=== PATIENT | male | born 1955 | race Caucasian/White ===

== ENCOUNTER 2021-08-17 16:55 | Observation (INO) | payer MEDICARE, OTHER ==
[2021-08-17] MEDS ORDERED: Sodium Chloride 0.9% 1000 ML 1,000 ML IV SCH (17:30)
[2021-08-17 18:02] LABS: Absolute Neutrophil Ct (ANC) 7.42 (1.4-6.9); Basophil (Absolute #) 0.03 (0-0.4); Eosinophil % 2.1 % (0.00-5.0); Eosinophil (Absolute #) 0.22 (0-0.5); Hematocrit 46.9 % (42-50); Lymphocyte (Absolute #) 2.18 (1.0-4.6); Lymphocytes % 20.3 % (24.0-44.0); Mean Cell Volume 89.5 fl (78-100); Mean Corpuscular Hemoglobin 30.5 pg (26-32); Mean Corpuscular Hgb Concent. 34.1 g/dl (32-36); Mean Platelet Volume 11.2 fl (7.5-11.0); Monocyte (Absolute #) 0.87 (0.0-1.3); Monocytes % 8.1 % (0.0-12.0); Neutrophil % 69.2 % (36.0-66.0); Platelet Count 284 K/mm3 (150-450); Red Blood Count 5.24 M/mm3 (4.1-5.6); Red Cell Distribution Width 13.7 % (11.5-14.0); White Blood Count 10.7 K/mm3 (4.0-10.5)
[2021-08-17 18:12] LABS: ALBUMIN 4.5 g/dL (3.5-5.0); ALKALINE PHOSPHATASE 66 U/L (38-126); ANION GAP 13.3 MEQ/L (5-15); BLOOD UREA NITROGEN 26 mg/dL (9-20); CHLORIDE 102 mmol/L (98-107); Calcium 9.9 mg/dL (8.4-10.2); Carbon Dioxide 25 mmol/L (22-30); Creatinine 1 1.22 mg/dL (0.66-1.25); EST GLOMERULAR FILTRATION RATE > 60.0 ML/MIN; Glucose 126 mg/dL (74-106); Potassium 4.3 mmol/L (3.5-5.1); SGOT/AST 27 U/L (17-59); SGPT/ALT 20 U/L (0-50); SODIUM 137 mmol/L (137-145); Total Protein 7.4 g/dL (6.3-8.2)
[2021-08-17 19:41] LABS: Amphetamine,Urine NEGATIVE (NEGATIVE); Barbiturate,Urine NEGATIVE (NEGATIVE); Benzodiazepine,Urine NEGATIVE (NEGATIVE); Cocaine,Urine NEGATIVE (NEGATIVE); Methadone,Urine NEGATIVE (NEGATIVE); Opiate,Urine NEGATIVE (NEGATIVE); PCP,Urine NEGATIVE (NEGATIVE); THC,Urine NEGATIVE (NEGATIVE)
--- NOTE | 2021-08-17 19:55 | ERPHSYRPT ---
- History of Present Illness Time Seen by Provider: 08/17/21 17:10 Source: patient Exam Limitations: no limitations Patient Subjective Stated Complaint: PT states "It started yesterday, the right side of my tongue is tingling and my right cheek and jaw is numb." Triage Nursing Assessment: PT presented alert and oriented X 3, skin pwd Pt ambulates with an upright steady gait, able to speak in clear full sentences pt in no apparent respiratory distress. Physician History: Patient is a 66-year-old male presents to our ED with a 1 day history of right tongue tingling and right cheek jaw numbness. Symptoms continued into today. No associated motor weakness. No headache. No acute blurred vision. No neck pain. No associated chest pain or shortness of breath. No nausea vomiting or diaphoresis. No recent fevers. No diarrhea. No rash. Symptoms are mild to moderate in intensity. No specific worsening improving factors. Patient denies a history of the same. Patient has a history of diabetes hypertension hypercholesterolemia. Patient states he has been taking all medications as prescribed. 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 Patient states is otherwise healthy. He voices no other complaints or concerns at this time. Timing/Duration: yesterday Severity: moderate Modifying Factors: Improves With: nothing Associated Symptoms: denies symptoms Allergies/Adverse Reactions: lisinopril Adverse Reaction (Severe, Verified 08/17/21 17:15) Cough Home Medications: Atorvastatin Calcium [Lipitor] 20 mg PO DAILY 08/17/21 [History] Hctz/Triamteren 37.5 mg/25 mg* [Maxzide-25MG Tablet] 1 tab PO DAILY 08/17/21 [History] Insulin Glargine,Hum.rec.anlog [Lantus] 100 unit SQ DAILY 08/17/21 [History] Losartan Potassium [Cozaar] 50 mg PO DAILY 08/17/21 [History] Metformin HCl 500 mg [Glucophage 500 MG] 1,000 mg PO BIDWM 08/17/21 [History] Metoprolol Succinate [Toprol Xl] 25 mg PO DAILY 08/17/21 [History] [place]-3 Fatty Acids/Fish Oil [Fish Oil 1,000 mg Capsule] 1 each PO DAILY 08/17/21 [History] Semaglutide [Ozempic] 1 mg SQ DAILY 08/17/21 [History] Hx Tetanus, Diphtheria Vaccination/Date Given: Yes Hx Influenza Vaccination/Date Given: Yes Hx Pneumococcal Vaccination/Date Given: No Immunizations Up to Date: Yes Travel Risk - International Travel Have you traveled outside of the country in past 3 weeks: No - Coronavirus Screening Are you exhibiting any of the following symptoms?: No Close contact with a COVID-19 positive Pt in past 14-21 Days: No - Vaccine Status Have you recieved a Covid-19 vaccination: Yes [employer]: Moderna - Vaccination Dates Date of 2cond Vaccination (if applicable): 10/2020 Comment: booster in may - Review of Systems Constitutional: No Symptoms, No Fever, No Chills Eyes: No Symptoms Ears, Nose, & Throat: No Symptoms Respiratory: No Symptoms, No Cough, No Dyspnea Cardiac: No Symptoms, No Chest Pain, No Edema, No Syncope Abdominal/Gastrointestinal: No Symptoms, No Abdominal Pain, No Nausea, No Vomiting, No Diarrhea Genitourinary Symptoms: No Symptoms, No Dysuria Musculoskeletal: No Symptoms, No Back Pain, No Neck Pain Skin: No Symptoms, No Rash Neurological: No Symptoms, No Dizziness, No Focal Weakness, No Sensory Changes Psychological: No Symptoms Endocrine: No Symptoms Hematologic/Lymphatic: No Symptoms Immunological/Allergic: No Symptoms All Other Systems: Reviewed and Negative - Past Medical History Pertinent Past Medical History: Yes Cardiac History: Angina, High Cholesterol, Hypertension Endocrine Medical History: Diabetes Type II GI Medical History: GERD - Past Surgical History Past Surgical History: Yes Other Surgical History: appi. hernia X 2 - Social History Smoking Status: Never smoker Exposure to second hand smoke: No Drug Use: none Patient Lives Alone: No - Nursing Vital Signs Nursing Vital Signs: Initial Vital Signs Temperature 97.6 F 08/17/21 17:05 Pulse Rate 92 H 08/17/21 17:05 Respiratory Rate 20 08/17/21 17:05 Blood Pressure 158/97 08/17/21 17:05 O2 Sat by Pulse Oximetry 98 08/17/21 17:05 Pain Scale Pain Intensity 0 - Physical Exam General Appearance: no apparent distress, alert Eye Exam: PERRL/EOMI, eyes nml inspection Ears, Nose, Throat Exam: normal ENT inspection, TMs normal, pharynx normal, moist mucous membranes Neck Exam: normal inspection, non-tender, supple, full range of motion Respiratory Exam: normal breath sounds, lungs clear, airway intact, No respiratory distress Cardiovascular Exam: regular rate/rhythm, normal heart sounds, normal peripheral pulses Gastrointestinal/Abdomen Exam: soft, normal bowel sounds, No tenderness, No mass Back Exam: normal inspection, normal range of motion, No CVA tenderness, No vertebral tenderness Extremity Exam: normal inspection, normal range of motion, pelvis stable Neurologic Exam: alert, oriented x 3, cooperative, normal mood/affect, nml cerebellar function, nml station & gait, sensation nml, other (Patient's complaints are subjective. Objective neuro exam within normal limits.), No motor deficits Skin Exam: normal color, warm, dry, No rash Lymphatic Exam: No adenopathy SpO2 Interpretation: normal SpO2: 94 O2 Delivery: Room Air - Course Nursing assessment & vital signs reviewed: Yes EKG Interpreted by Me: RATE (75), Sinus Rhythm, NORMAL AXIS, NORMAL INTERVALS (Incomplete right bundle branch block and left anterior fascicular block. Consider anterior infarct.) - CT Exams Soft Tissue Neck CT Interpretation: Tele-radiologist Report (CT angio neck. No clamps. Very minimal atherosclerotic plaquing bilateral carotid bulb. Remaining CTA neck normal.) Head CT Interpretation: Tele-radiologist Report (CTA head shows no comps. Minimal scattered atherosclerotic plaquing bilateral parasellar and ICAs. Remaining CTA head normal.) Other CT Interpretation: Tele-radiologist Report (CT head without contrast is normal.) Ordered Tests: Active Orders 24 hr Category Date Time Status Bedrest with BRP/BSC ROUTINE Activity 08/17/21 23:49 Active Monotyper STAT Care 08/17/21 17:30 Active Code Status Order ROUTINE Care 08/17/21 23:49 Active EKG-ER Only STAT Care 08/17/21 17:29 Active IV Care Q6H Care 08/17/21 23:49 Active IV Insertion STAT Care 08/17/21 17:29 Active Implement Chest Pain Pathway ROUTINE Care 08/17/21 23:[address] in Observation ROUTINE Care 08/17/21 23:49 Active Pulse Oximetry (ED) STAT Care 08/17/21 17:29 Active Darwin Dickerson, Apply ROUTINE Care 08/17/21 23:49 Active Telemetry q6h Care 08/17/21 23:49 Active Weight,Daily 0600 Care 08/17/21 23:49 Active Consistent Carbohydrate Diet 1800 Calorie Diet 08/18/21 Breakfast Active CAROTID BILATERAL [US] Stat Exams 08/17/[address] ANGIOGRAPHY NECK [CT] Stat Exams 08/17/21 17:31 Taken CTA HEAD W AND/OR WO CONTRAST [CT] Stat Exams 08/17/21 17:32 Taken HEAD WITHOUT CONTRAST [CT] Stat Exams 08/17/21 17:28 Taken CBC W DIFF Stat Lab 08/17/21 17:50 Completed CMP Stat Lab 08/17/21 17:50 Completed LIPID PROFILE AM.LAB Lab 08/18/21 04:00 Ordered TROPONIN Q3H Lab 08/17/21 17:50 Completed TROPONIN Q3H Lab 08/17/21 20:25 Completed TROPONIN Q3H Lab 08/17/21 23:30 Received TROPONIN Q3H Lab 08/18/21 02:30 Ordered TROPONIN Q3H Lab 08/18/21 05:30 Ordered Urine Triage Profile Stat Lab 08/17/21 18:44 Completed EKG Q8HX2,QAMX3,PRN RT 08/17/21 23:49 Active Pulse Oximetry Q4H RT 08/17/21 23:49 Active Medication Summary Generic Name Dose Route Start Last Admin Trade Name Freq PRN Reason Stop Dose Admin Acetaminophen 650 mg 08/17/21 23:49 Acetaminophen 325 Mg Tablet PO 09/16/21 23:48 Q4H PRN PRN PAIN AND/OR FEVER Al Hydrox/Mg Hydrox/Simethicone 30 ml 08/17/21 23:49 Mag Hydrox/Al Hydrox/Simeth 30 Ml Udcup PO 09/16/21 23:48 Q4H PRN PRN INDIGESTION Sodium Chloride 1,000 mls @ 50 mls/hr 08/17/21 17:30 08/17/21 17:53 Sodium Chloride 0.9% 1000 Ml IV 09/16/21 17:29 50 mls/hr .Q20H GINNA Administration Magnesium Hydroxide 30 - 60 ml 08/17/21 23:49 Magnesium Hydroxide 30 Ml Udcup PO 09/16/21 23:48 QDP PRN CONSTIPATION Ondansetron HCl 4 mg 08/17/21 23:49 Ondansetron Hcl 4 Mg/2 Ml Vial IV 09/16/21 23:48 Q4H PRN PRN NAUSEA/VOMITING Senna/Docusate Sodium 2 udtab 08/17/21 23:49 Senna/Docusate Sodium 1 Udtab Tablet PO 09/16/21 23:48 BID PRN PRN CONSTIPATION Discontinued Medications Generic Name Dose Route Start Last Admin Trade Name Rocky PRN Reason Stop Dose Admin Aspirin 324 mg 08/17/21 21:15 08/17/21 21:19 Aspirin 81 Mg Tab.Chew PO 08/17/21 21:16 324 mg STAT ONE Administration Aspirin Confirm 08/17/21 21:18 Aspirin 81 Mg Tab.Chew Administered 08/17/21 21:19 Dose 324 mg .ROUTE .STK-MED ONE Lab/Rad Data: Laboratory Result Diagrams 08/17/21 17:50 08/17/21 17:50 Laboratory Results 08/17/21 08/17/21 08/17/21 Range/Units 22:55 20:25 18:44 WBC (4.0-10.5) K/mm3 RBC (4.1-5.6) M/mm3 Hgb (12.5-18.0) gm/dl Hct (42-50) % MCV (78-100) fl MCH (26-32) pg MCHC (32-36) g/dl RDW (11.5-14.0) % Plt Count (150-450) K/mm3 MPV (7.5-11.0) fl Gran % (36.0-66.0) % Eos # (Auto) (0-0.5) Absolute Lymphs (auto) (1.0-4.6) Absolute Monos (auto) (0.0-1.3) Lymphocytes % (24.0-44.0) % Monocytes % (0.0-12.0) % Eosinophils % (0.00-5.0) % Basophils % (0.0-0.4) % Absolute Granulocytes (1.4-6.9) Basophils # (0-0.4) Sodium (137-145) mmol/L Potassium (3.5-5.1) mmol/L Chloride (98-107) mmol/L Carbon Dioxide (22-30) mmol/L Anion Gap (5-15) MEQ/L BUN (9-20) mg/dL Creatinine (0.66-1.25) mg/dL Estimated GFR ML/MIN Glucose (74-106) mg/dL Calcium (8.4-10.2) mg/dL Total Bilirubin (0.2-1.3) mg/dL AST (17-59) U/L ALT (0-50) U/L Alkaline Phosphatase (38-126) U/L Troponin I < 0.012 (0.000-0.034) ng/mL Serum Total Protein (6.3-8.2) g/dL Albumin (3.5-5.0) g/dL Urine Opiates Level NEGATIVE (NEGATIVE) Ur Methadone NEGATIVE (NEGATIVE) Urine Barbiturates NEGATIVE (NEGATIVE) Ur Phencyclidine (PCP) NEGATIVE (NEGATIVE) Urine Amphetamine NEGATIVE (NEGATIVE) U Benzodiazepine Level NEGATIVE (NEGATIVE) Urine Cocaine NEGATIVE (NEGATIVE) Urine Marijuana (THC) NEGATIVE (NEGATIVE) Influenza Type A Ag NEGATIVE (NEGATIVE) Influenza Type B Ag NEGATIVE (NEGATIVE) RSV (PCR) NEGATIVE (Negative) SARS-CoV-2 (PCR) NEGATIVE (NEGATIVE) 08/17/21 08/17/21 08/17/21 Range/Units 17:50 17:50 17:50 WBC 10.7 H (4.0-10.5) K/mm3 RBC 5.24 (4.1-5.6) M/mm3 Hgb 16.0 (12.5-18.0) gm/dl Hct 46.9 (42-50) % MCV 89.5 (78-100) fl MCH 30.5 (26-32) pg MCHC 34.1 (32-36) g/dl RDW 13.7 (11.5-14.0) % Plt Count 284 (150-450) K/mm3 MPV 11.2 H (7.5-11.0) fl Gran % 69.2 H (36.0-66.0) % Eos # (Auto) 0.22 (0-0.5) Absolute Lymphs (auto) 2.18 (1.0-4.6) Absolute Monos (auto) 0.87 (0.0-1.3) Lymphocytes % 20.3 L (24.0-44.0) % Monocytes % 8.1 (0.0-12.0) % Eosinophils % 2.1 (0.00-5.0) % Basophils % 0.3 (0.0-0.4) % Absolute Granulocytes 7.42 H (1.4-6.9) Basophils # 0.03 (0-0.4) Sodium 137 (137-145) mmol/L Potassium 4.3 (3.5-5.1) mmol/L Chloride 102 (98-107) mmol/L Carbon Dioxide 25 (22-30) mmol/L Anion Gap 13.3 (5-15) MEQ/L BUN 26 H (9-20) mg/dL Creatinine 1.22 (0.66-1.25) mg/dL Estimated GFR > 60.0 ML/MIN Glucose 126 H (74-106) mg/dL Calcium 9.9 (8.4-10.2) mg/dL Total Bilirubin 0.70 (0.2-1.3) mg/dL AST 27 (17-59) U/L ALT 20 (0-50) U/L Alkaline Phosphatase 66 (38-126) U/L Troponin I < 0.012 (0.000-0.034) ng/mL Serum Total Protein 7.4 (6.3-8.2) g/dL Albumin 4.5 (3.5-5.0) g/dL Urine Opiates Level (NEGATIVE) Ur Methadone (NEGATIVE) Urine Barbiturates (NEGATIVE) Ur Phencyclidine (PCP) (NEGATIVE) Urine Amphetamine (NEGATIVE) U Benzodiazepine Level (NEGATIVE) Urine Cocaine (NEGATIVE) Urine Marijuana (THC) (NEGATIVE) Influenza Type A Ag (NEGATIVE) Influenza Type B Ag (NEGATIVE) RSV (PCR) (Negative) SARS-CoV-2 (PCR) (NEGATIVE) - Progress Progress: improved Progress Note: 08/17/21 21:16 Case discussed with teleneurologist. He advises admission. He advises aspirin which was administered now. IV fluids will be administered as well. Patient to be admitted for MRI head with diffusion weighted images and ADC. TTE. Further management per inpatient neurology. Plan of care discussed with patient. He agrees admissions on [facility] for further evaluation and treatment. Covid test pending. 08/17/21 23:55 Patient is Covid negative. Case discussed with Dr. Mathis who accepts admission to observation. Plan of care discussed with patient. He agrees to [facility] for further evaluation and treatment. Strongly requested a.m. hemoglobin A1c as well as ultrasound and carotid Dopplers. Will see patient in: hospital (observation) Counseled pt/family regarding: lab results, diagnosis, rad results - Departure Departure Disposition: Observation Clinical Impression: Dysesthesia of face Condition: Stable Critical Care Time: No Referrals: HOSPITAL,'S [Primary Care Provider] - Follow up/PCP as directed
[2021-08-17] MEDS ORDERED: BABY ASPIRIN 81 MG CHEW PO ONE (21:15)
[2021-08-17] MEDS ORDERED: BABY ASPIRIN 81 MG CHEW ONE (21:18)
[2021-08-17 23:40] LABS: INFLUENZA A NEGATIVE (NEGATIVE); INFLUENZA B NEGATIVE (NEGATIVE); RESPIRATORY SYNCTIAL VIRUS NEGATIVE (Negative); SARS-CoV-2 Xpert Express NEGATIVE (NEGATIVE)
[2021-08-17] MEDS ORDERED: MAALOX ES 30 ML UNIT DOSE PO PRN (23:49)
[2021-08-17] MEDS ORDERED: Senokot-S Tablet PO PRN (23:49)
[2021-08-17] MEDS ORDERED: TYLENOL 325 MG PO PRN (23:49)
[2021-08-17] MEDS ORDERED: Zofran 4 MG/2 ML VIAL IV PRN (23:49)
[2021-08-17] MEDS ORDERED: MILK OF MAGNESIA 30 ML PO PRN (23:49)
[2021-08-18 03:08] LABS: Risk Ratio 3.7
--- NOTE | 2021-08-18 09:08 | XRAY ---
Indication: Right facial numbness. Stroke. Multiple contiguous axial images obtained through the head without contrast. Comparison: None Age-appropriate global atrophy. No acute intracranial hemorrhage, abnormal extra-axial fluid collection, or mass effect. Fourth ventricle is midline without hydrocephalus. Reeves-white matter differentiation preserved. Bony calvarium intact. Floor of right maxillary sinus demonstrates mild mucosal thickening. Both maxillary sinuses demonstrates sub 5 mm polyps/retention cysts. Remaining visualized paranasal sinuses and mastoid air cells are clear. Impression: Paranasal sinus disease. Remaining CT head without contrast exam is negative.
--- NOTE | 2021-08-18 09:18 | XRAY ---
Indication: Left facial numbness. Two-dimensional contrast enhanced CTA neck performed using 100 cc Isovue 370 contrast. Two-dimensional sagittal and coronal reformatted images obtained. Additional 3-dimensional reformatted images obtained using a separate workstation. Comparison: None Visualized aortic arch is normal in course and caliber with patent branch right brachiocephalic, left common carotid, and left subclavian arteries. Right carotid circulation demonstrates widely patent common carotid, carotid bulb and external carotid artery. Origin internal carotid artery demonstrates minimal punctate arteriosclerotic calcification. Left carotid circulation demonstrates widely patent common carotid artery. Carotid bulb demonstrates minimal eccentric soft plaquing producing 20-30% stenosis. Minimal eccentric calcified plaquing at the level of bulb. Remaining internal and external carotid arteries are normal in CTA appearance. Vertebral arteries are bilaterally symmetric without critical stenosis, obstruction, or AV malformation. Visualized soft tissues demonstrates scattered centimeter/subcentimeter cervical and submandibular lymph nodes bilaterally. Parotid and submandibular glands are bilaterally symmetric. Supra and infraglottic airway widely patent. Cervical spine intact with minimal C5-C6 degenerative changes. Lung apices are clear. Impression: 1. Minimal left carotid and very minimal right carotid arteriosclerotic disease as detailed. 2. Remaining CTA neck with contrast exam is negative for critical stenosis/obstruction.
--- NOTE | 2021-08-18 09:22 | XRAY ---
Indication: Left facial numbness. Two-dimensional contrast enhanced CTA head performed using 100 cc Isovue 370 contrast. Two-dimensional sagittal and coronal reformatted images obtained. Additional 3-dimensional reformatted images obtained using a separate workstation. Comparison: None Distal internal carotid arteries are bilaterally symmetric with minimal scattered arteriosclerotic calcifications involving parasellar segments. No critical stenosis, obstruction, or AV malformation. Normal carotid terminus with normal branching A1 and M1 segments bilaterally. More distal anterior cerebral, middle cerebral, anterior communicating, and posterior communicating arteries are normal in CTA appearance. Posterior circulation demonstrates normal CTA appearance to the basilar artery, left/right posterior cerebral, left/right superior cerebellar, and left/right anterior inferior cerebellar arteries. Venous drainage/sinuses are unremarkable. Remaining whole brain is negative for abnormal enhancing intra-or extra-axial mass. Impression: Minimal scattered arteriosclerotic calcifications both distal internal carotid arteries without critical stenosis/obstruction. Remaining CTA head with contrast exam is negative.
--- NOTE | 2021-08-18 10:31 | XRAY ---
Indication: Left facial numbness. Stroke. Sagittal, coronal, and axial MRI brain performed using pre and post T1, T2, FLAIR, diffusion, and ADC sequences. 20 cc Dotarem contrast used. Comparison: None Age-appropriate global atrophy. Punctate T2 signal intensities in the periventricular white matter bilaterally favoring degenerative micro-ischemia. No acute intracranial hemorrhage, abnormal extra-axial fluid collection, or mass effect. Diffusion images are negative for restricted signal. Following gadolinium, there is no abnormal enhancing intra or extra-axial mass. Fourth ventricle is midline without hydrocephalus. 7/8 cranial nerve complex bilaterally symmetric. Normal flow void signal within the major intracerebral circulation. Normal appearing craniocervical junction and sella turcica. Paranasal sinuses are clear. Impression: 1. Global atrophy and degenerative micro-ischemia within normal limits for patient's age. 2. No acute intracranial abnormalities or evidence for evolving large vessel territory stroke. 3. Remaining MRI brain with contrast exam is negative.
[2021-08-18] MEDS ORDERED: Sodium Chloride 0.9% 500 ML 500 ML IV ONE (11:24)
--- NOTE | 2021-08-18 11:31 | XRAY ---
Indication: Stenosis. Two-dimensional sonogram and color Doppler imaging of the carotid arteries the neck performed. Comparison: None Examination of the right carotid circulation demonstrates minimal eccentric calcified plaquing proximal internal carotid artery. Remaining common carotid, carotid bulb, internal carotid, and additional carotid arteries are widely patent. PSV of the CCA is 121 cm. PSV of the ICA is 56 m/s. ICA/CCA ratio is 0.5. Normal antegrade vertebral artery flow. Examination of the left carotid circulation demonstrates minimal heterogeneous plaquing at the level of the bulb. Widely patent common carotid, internal carotid, and external carotid arteries. PSV of the CCA is 108 cm/s. PSV of the ICA is 88 cm/s. ICA/CCA ratio is 0.8. Normal antegrade vertebral artery flow. Impression: Minimal arteriosclerotic plaquing right internal carotid and left carotid bulb as detailed. Velocity measurements and ratios are negative for hemodynamically significant flow-limiting stenosis.
[2021-08-18] MEDS ORDERED: MEDICATION INTERVENTION MC SCH (11:45)
[2021-08-18] MEDS ORDERED: Toprol-Xl 25MG Tablets PO SCH (12:00)
[2021-08-18] MEDS ORDERED: FISH OIL 1,000 MG CAPSULE PO SCH (12:00)
[2021-08-18] MEDS ORDERED: Glucophage 500 MG PO SCH (12:00)
[2021-08-18] MEDS ORDERED: Lantus Insulin SQ SCH (12:00)
[2021-08-18] MEDS ORDERED: Cozaar 50 MG PO SCH (12:00)
[2021-08-18] MEDS ORDERED: Maxzide-25MG Tablet PO SCH (12:00)
[2021-08-18] MEDS ORDERED: ZOCOR 20MG PO SCH (12:00)
[2021-08-18 12:11] VITALS: BP 142/85; PULSE 72; O2SAT 96
--- NOTE | 2021-08-18 12:39 | PCM.DCORD ---
- Discharge Disposition: Home, Self-Care Condition: Stable Prescriptions: Continue Hctz/Triamteren 37.5 mg/25 mg* [Maxzide-25MG Tablet] 1 tab PO DAILY Metformin HCl 500 mg [Glucophage 500 MG] 1,000 mg PO BIDWM Semaglutide [Ozempic] 1 mg SQ DAILY [place]-3 Fatty Acids/Fish Oil [Fish Oil 1,000 mg Capsule] 1 each PO DAILY Metoprolol Succinate [Toprol Xl] 25 mg PO DAILY Losartan Potassium [Cozaar] 50 mg PO DAILY Insulin Glargine,Hum.rec.anlog [Lantus] 100 unit SQ DAILY Atorvastatin Calcium [Lipitor] 20 mg PO DAILY Instructions: Stroke Forms: CVA Discharge Instructions
--- NOTE | 2021-08-18 12:48 | PCM.SSS ---
History of Present Illness - Chief Complaint Chief Complaint: r/o stroke History of Present Illness: is a 66 year old male patient followed at the NH in [place], [place]. PMHx includes HTN,IDDM2,HLD,chronic back and neck pain. Patient c/o sudden onset of numbness and tingling in right chin,lips and tongue. States he called the NH and was instructed to go to the nearest hospital ER for evaluation. He denied motor defecit or headache or difficulty with speech or mentaton or gait. He denied fever or respiratory symptoms or chest pain. - Review of Systems Constitutional: No Symptoms Eyes: No Symptoms Ears, Nose, & Throat: No Symptoms, Other Respiratory: No Symptoms Cardiac: No Symptoms Abdominal/Gastrointestinal: No Symptoms Genitourinary Symptoms: No Symptoms Musculoskeletal: Back Pain (chronic LBP), Neck Pain (chronic neck pain,muscle tightness-no recent injury.) Skin: No Symptoms Neurological: Other (see HPI) Psychological: No Symptoms Endocrine: No Symptoms Medications & Allergies Home Medications: Home Medication List Atorvastatin Calcium [Lipitor] 20 mg PO DAILY 08/17/21 [History Confirmed 08/17/21] Hctz/Triamteren 37.5 mg/25 mg* [Maxzide-25MG Tablet] 1 tab PO DAILY 08/17/21 [History Confirmed 08/17/21] Insulin Glargine,Hum.rec.anlog [Lantus] 100 unit SQ DAILY 08/17/21 [History Confirmed 08/17/21] Losartan Potassium [Cozaar] 50 mg PO DAILY 08/17/21 [History Confirmed 08/17/21] Metformin HCl 500 mg [Glucophage 500 MG] 1,000 mg PO BIDWM 08/17/21 [History Confirmed 08/17/21] Metoprolol Succinate [Toprol Xl] 25 mg PO DAILY 08/17/21 [History Confirmed 08/17/21] [place]-3 Fatty Acids/Fish Oil [Fish Oil 1,000 mg Capsule] 1 each PO DAILY 08/17/21 [History Confirmed 08/17/21] Semaglutide [Ozempic] 1 mg SQ DAILY 08/17/21 [History Confirmed 08/17/21] Allergies/Adverse Reactions: Allergies Allergy/AdvReac Type Severity Reaction Status Date / Time lisinopril AdvReac Severe Cough Verified 08/17/21 17:15 - Past Medical History Past Medical History: Yes Neurological History: No Pertinent History ENT History: No Pertinent History Cardiac History: High Cholesterol, Hypertension Respiratory History: No Pertinent History Endocrine Medical History: Diabetes Type II Musculoskelatal History: No Pertinent History GI Medical History: GERD History: No Pertinent History Pyscho-Social History: No Pertinent History Male Reproductive Disorders: No Pertinent History - Past Surgical History Past Surgical History: Yes Neuro Surgical History: No Pertinent History Cardiac History: No Pertinent History Respiratory Surgery: No Pertinent History GI Surgical History: Appendectomy Genitourinary Surgical Hx: No Pertinent History Musculskeletal Surgical Hx: No Pertinent History Male Surgical History: No Pertinent History Other Surgical History: appi. hernia X 2. rt rotator cuff - Social History Smoking Status: Never smoker Exposure to second hand smoke: No Alcohol: None Drug Use: none - Physical Exam Vital Signs: Vital Signs - 24 hr Temp Pulse Resp BP Pulse Ox 08/18/21 12:00 97.7 F 72 20 142/85 96 08/18/21 08:00 97.5 F 79 20 169/95 97 08/18/21 04:00 96.6 F 95 H 16 149/86 94 L 08/18/21 00:51 96.6 F 78 16 155/81 97 08/18/21 00:19 96.6 F 78 16 155/81 97 08/18/21 00:04 81 133/78 95 08/17/21 23:57 94 L 08/17/21 23:16 78 148/86 97 08/17/21 22:42 83 17 145/88 96 08/17/21 21:02 85 160/96 97 08/17/21 21:00 93 H 16 160/96 97 08/17/21 20:05 69 17 125/72 95 08/17/21 19:31 82 133/81 94 L 08/17/21 18:44 78 17 124/77 93 L 08/17/21 17:49 96 08/17/21 17:05 97.6 F 92 H 20 158/97 98 General Appearance: no apparent distress Neurologic Exam: alert, oriented x 3, cooperative, psychological examiner II-XII nml as tested, nor mal mood/affect, nml cerebellar function, nml station & gait Eye Exam: PERRL/EOMI, eyes nml inspection Neck Exam: other (muscle spasm right posterio OA C1,2,3) Respiratory Exam: normal breath sounds Cardiovascular Exam: regular rate/rhythm, other (no carotid bruit) Gastrointestinal/Abdomen Exam: soft (no tender) Back Exam: decreased range of motion (lumbar), muscle spasm Extremity Exam: normal inspection Skin Exam: normal color, warm, dry Results - Labs Lab/Micro Results: Lab Results-Last 24 Hours 08/17/21 08/17/21 08/17/21 Range/Units 17:50 17:50 17:50 WBC 10.7 H (4.0-10.5) K/mm3 RBC 5.24 (4.1-5.6) M/mm3 Hgb 16.0 (12.5-18.0) gm/dl Hct 46.9 (42-50) % MCV 89.5 (78-100) fl MCH 30.5 (26-32) pg MCHC 34.1 (32-36) g/dl RDW 13.7 (11.5-14.0) % Plt Count 284 (150-450) K/mm3 MPV 11.2 H (7.5-11.0) fl Gran % 69.2 H (36.0-66.0) % Eos # (Auto) 0.22 (0-0.5) Absolute Lymphs (auto) 2.18 (1.0-4.6) Absolute Monos (auto) 0.87 (0.0-1.3) Lymphocytes % 20.3 L (24.0-44.0) % Monocytes % 8.1 (0.0-12.0) % Eosinophils % 2.1 (0.00-5.0) % Basophils % 0.3 (0.0-0.4) % Absolute Granulocytes 7.42 H (1.4-6.9) Basophils # 0.03 (0-0.4) Sodium 137 (137-145) mmol/L Potassium 4.3 (3.5-5.1) mmol/L Chloride 102 (98-107) mmol/L Carbon Dioxide 25 (22-30) mmol/L Anion Gap 13.3 (5-15) MEQ/L BUN 26 H (9-20) mg/dL Creatinine 1.22 (0.66-1.25) mg/dL Estimated GFR > 60.0 ML/MIN Glucose 126 H (74-106) mg/dL Hemoglobin A1c (4.5-6.0) % Calcium 9.9 (8.4-10.2) mg/dL Total Bilirubin 0.70 (0.2-1.3) mg/dL AST 27 (17-59) U/L ALT 20 (0-50) U/L Alkaline Phosphatase 66 (38-126) U/L Troponin I < 0.012 (0.000-0.034) ng/mL Serum Total Protein 7.4 (6.3-8.2) g/dL Albumin 4.5 (3.5-5.0) g/dL Triglycerides (30-150) mg/dL Cholesterol (50-200) mg/dL LDL Cholesterol (30-100) mg/dL HDL Cholesterol (40-60) mg/dL Heart Disease Risk Ratio Urine Opiates Level (NEGATIVE) Ur Methadone (NEGATIVE) Urine Barbiturates (NEGATIVE) Ur Phencyclidine (PCP) (NEGATIVE) Urine Amphetamine (NEGATIVE) U Benzodiazepine Level (NEGATIVE) Urine Cocaine (NEGATIVE) Urine Marijuana (THC) (NEGATIVE) Influenza Type A Ag (NEGATIVE) Influenza Type B Ag (NEGATIVE) RSV (PCR) (Negative) SARS-CoV-2 (PCR) (NEGATIVE) 08/17/21 08/17/21 08/17/21 Range/Units 18:44 20:25 22:55 WBC (4.0-10.5) K/mm3 RBC (4.1-5.6) M/mm3 Hgb (12.5-18.0) gm/dl Hct (42-50) % MCV (78-100) fl MCH (26-32) pg MCHC (32-36) g/dl RDW (11.5-14.0) % Plt Count (150-450) K/mm3 MPV (7.5-11.0) fl Gran % (36.0-66.0) % Eos # (Auto) (0-0.5) Absolute Lymphs (auto) (1.0-4.6) Absolute Monos (auto) (0.0-1.3) Lymphocytes % (24.0-44.0) % Monocytes % (0.0-12.0) % Eosinophils % (0.00-5.0) % Basophils % (0.0-0.4) % Absolute Granulocytes (1.4-6.9) Basophils # (0-0.4) Sodium (137-145) mmol/L Potassium (3.5-5.1) mmol/L Chloride (98-107) mmol/L Carbon Dioxide (22-30) mmol/L Anion Gap (5-15) MEQ/L BUN (9-20) mg/dL Creatinine (0.66-1.25) mg/dL Estimated GFR ML/MIN Glucose (74-106) mg/dL Hemoglobin A1c (4.5-6.0) % Calcium (8.4-10.2) mg/dL Total Bilirubin (0.2-1.3) mg/dL AST (17-59) U/L ALT (0-50) U/L Alkaline Phosphatase (38-126) U/L Troponin I < 0.012 (0.000-0.034) ng/mL Serum Total Protein (6.3-8.2) g/dL Albumin (3.5-5.0) g/dL Triglycerides (30-150) mg/dL Cholesterol (50-200) mg/dL LDL Cholesterol (30-100) mg/dL HDL Cholesterol (40-60) mg/dL Heart Disease Risk Ratio Urine Opiates Level NEGATIVE (NEGATIVE) Ur Methadone NEGATIVE (NEGATIVE) Urine Barbiturates NEGATIVE (NEGATIVE) Ur Phencyclidine (PCP) NEGATIVE (NEGATIVE) Urine Amphetamine NEGATIVE (NEGATIVE) U Benzodiazepine Level NEGATIVE (NEGATIVE) Urine Cocaine NEGATIVE (NEGATIVE) Urine Marijuana (THC) NEGATIVE (NEGATIVE) Influenza Type A Ag NEGATIVE (NEGATIVE) Influenza Type B Ag NEGATIVE (NEGATIVE) RSV (PCR) NEGATIVE (Negative) SARS-CoV-2 (PCR) NEGATIVE (NEGATIVE) 08/17/21 08/18/21 08/18/21 Range/Units 23:30 02:30 02:30 WBC (4.0-10.5) K/mm3 RBC (4.1-5.6) M/mm3 Hgb (12.5-18.0) gm/dl Hct (42-50) % MCV (78-100) fl MCH (26-32) pg MCHC (32-36) g/dl RDW (11.5-14.0) % Plt Count (150-450) K/mm3 MPV (7.5-11.0) fl Gran % (36.0-66.0) % Eos # (Auto) (0-0.5) Absolute Lymphs (auto) (1.0-4.6) Absolute Monos (auto) (0.0-1.3) Lymphocytes % (24.0-44.0) % Monocytes % (0.0-12.0) % Eosinophils % (0.00-5.0) % Basophils % (0.0-0.4) % Absolute Granulocytes (1.4-6.9) Basophils # (0-0.4) Sodium (137-145) mmol/L Potassium (3.5-5.1) mmol/L Chloride (98-107) mmol/L Carbon Dioxide (22-30) mmol/L Anion Gap (5-15) MEQ/L BUN (9-20) mg/dL Creatinine (0.66-1.25) mg/dL Estimated GFR ML/MIN Glucose (74-106) mg/dL Hemoglobin A1c (4.5-6.0) % Calcium (8.4-10.2) mg/dL Total Bilirubin (0.2-1.3) mg/dL AST (17-59) U/L ALT (0-50) U/L Alkaline Phosphatase (38-126) U/L Troponin I < 0.012 < 0.012 (0.000-0.034) ng/mL Serum Total Protein (6.3-8.2) g/dL Albumin (3.5-5.0) g/dL Triglycerides 299 H (30-150) mg/dL Cholesterol 144 (50-200) mg/dL LDL Cholesterol 60 (30-100) mg/dL HDL Cholesterol 39 L (40-60) mg/dL Heart Disease Risk Ratio 3.7 Urine Opiates Level (NEGATIVE) Ur Methadone (NEGATIVE) Urine Barbiturates (NEGATIVE) Ur Phencyclidine (PCP) (NEGATIVE) Urine Amphetamine (NEGATIVE) U Benzodiazepine Level (NEGATIVE) Urine Cocaine (NEGATIVE) Urine Marijuana (THC) (NEGATIVE) Influenza Type A Ag (NEGATIVE) Influenza Type B Ag (NEGATIVE) RSV (PCR) (Negative) SARS-CoV-2 (PCR) (NEGATIVE) 08/18/21 08/18/21 Range/Units 02:30 05:45 WBC (4.0-10.5) K/mm3 RBC (4.1-5.6) M/mm3 Hgb (12.5-18.0) gm/dl Hct (42-50) % MCV (78-100) fl MCH (26-32) pg MCHC (32-36) g/dl RDW (11.5-14.0) % Plt Count (150-450) K/mm3 MPV (7.5-11.0) fl Gran % (36.0-66.0) % Eos # (Auto) (0-0.5) Absolute Lymphs (auto) (1.0-4.6) Absolute Monos (auto) (0.0-1.3) Lymphocytes % (24.0-44.0) % Monocytes % (0.0-12.0) % Eosinophils % (0.00-5.0) % Basophils % (0.0-0.4) % Absolute Granulocytes (1.4-6.9) Basophils # (0-0.4) Sodium (137-145) mmol/L Potassium (3.5-5.1) mmol/L Chloride (98-107) mmol/L Carbon Dioxide (22-30) mmol/L Anion Gap (5-15) MEQ/L BUN (9-20) mg/dL Creatinine (0.66-1.25) mg/dL Estimated GFR ML/MIN Glucose (74-106) mg/dL Hemoglobin A1c 6.74 H (4.5-6.0) % Calcium (8.4-10.2) mg/dL Total Bilirubin (0.2-1.3) mg/dL AST (17-59) U/L ALT (0-50) U/L Alkaline Phosphatase (38-126) U/L Troponin I < 0.012 (0.000-0.034) ng/mL Serum Total Protein (6.3-8.2) g/dL Albumin (3.5-5.0) g/dL Triglycerides (30-150) mg/dL Cholesterol (50-200) mg/dL LDL Cholesterol (30-100) mg/dL HDL Cholesterol (40-60) mg/dL Heart Disease Risk Ratio Urine Opiates Level (NEGATIVE) Ur Methadone (NEGATIVE) Urine Barbiturates (NEGATIVE) Ur Phencyclidine (PCP) (NEGATIVE) Urine Amphetamine (NEGATIVE) U Benzodiazepine Level (NEGATIVE) Urine Cocaine (NEGATIVE) Urine Marijuana (THC) (NEGATIVE) Influenza Type A Ag (NEGATIVE) Influenza Type B Ag (NEGATIVE) RSV (PCR) (Negative) SARS-CoV-2 (PCR) (NEGATIVE) - Radiology Impressions Radiology Exams & Impressions: Radiology Procedures Category Date Time Status CAROTID BILATERAL [US] Stat Exams 08/18/21 10:[address] ANGIOGRAPHY NECK [CT] Stat Exams 08/17/21 17:31 Completed CTA HEAD W AND/OR WO CONTRAST [CT] Stat Exams 08/17/21 17:32 Completed HEAD WITHOUT CONTRAST [CT] Stat Exams 08/17/21 17:28 Completed MRI BRAIN W & W/O CONTRAST [MRI] Routine Exams 08/18/21 07:00 Completed - Other Procedures and Tests Respiratory Therapy 08/19/21 05:00 EKG DAILY 08/20/21 05:00 EKG DAILY 08/21/21 05:00 EKG DAILY Assessment/Plan (1) Diabetes type 2, controlled Current Visit: Yes Status: Chronic Qualifiers: Diabetes mellitus terminal operator insulin use: with terminal operator use Assessment & Plan: A1C = 6.7% Code(s): E11.9 - TYPE 2 DIABETES MELLITUS WITHOUT COMPLICATIONS (2) Dysesthesia of face Current Visit: Yes Status: Acute Assessment & Plan: Teleneuro consult - advised overnight obs until MRI with and without contrast done. Code(s): R20.8 - OTHER DISTURBANCES OF SKIN SENSATION (3) Hypertension Current Visit: Yes Status: Chronic Assessment & Plan: monitor,continue present meds Code(s): I10 - ESSENTIAL (PRIMARY) HYPERTENSION Hospital Summary - Hospital Course Hospital Course: Patient presented to ER c/o tingling and numbness right mouth,lip and tongue. MRI of brain with and without contrast per Teleneuro recommended and was rep orted normal for patient's age. No change in condition but no additional neurologic symptoms. Troponins wer not elevated. Glucose and B/P mildly elevated. Patient will be discharged home to see PCP at NH at [facility] . - Vitals & Intake/Output Vital Signs: Vital Signs Temperature 97.7 F 08/18/21 12:00 Pulse Rate 72 08/18/21 12:00 Respiratory Rate 20 08/18/21 12:00 Blood Pressure 142/85 08/18/21 12:00 O2 Sat by Pulse Oximetry 96 08/18/21 12:00 Intake & Output: Intake & Output 08/16/21 08/17/21 08/18/21 08/19/21 11:59 11:59 11:59 11:59 Intake Total 240 Balance 240 Weight 102.5 kg - Lab Result Diagrams: 08/17/21 17:50 08/17/21 17:50 Lab Results-Last 24 Hrs: Lab Results-Last 24 Hours 08/17/21 08/17/21 08/17/21 Range/Units 17:50 17:50 17:50 WBC 10.7 H (4.0-10.5) K/mm3 RBC 5.24 (4.1-5.6) M/mm3 Hgb 16.0 (12.5-18.0) gm/dl Hct 46.9 (42-50) % MCV 89.5 (78-100) fl MCH 30.5 (26-32) pg MCHC 34.1 (32-36) g/dl RDW 13.7 (11.5-14.0) % Plt Count 284 (150-450) K/mm3 MPV 11.2 H (7.5-11.0) fl Gran % 69.2 H (36.0-66.0) % Eos # (Auto) 0.22 (0-0.5) Absolute Lymphs (auto) 2.18 (1.0-4.6) Absolute Monos (auto) 0.87 (0.0-1.3) Lymphocytes % 20.3 L (24.0-44.0) % Monocytes % 8.1 (0.0-12.0) % Eosinophils % 2.1 (0.00-5.0) % Basophils % 0.3 (0.0-0.4) % Absolute Granulocytes 7.42 H (1.4-6.9) Basophils # 0.03 (0-0.4) Sodium 137 (137-145) mmol/L Potassium 4.3 (3.5-5.1) mmol/L Chloride 102 (98-107) mmol/L Carbon Dioxide 25 (22-30) mmol/L Anion Gap 13.3 (5-15) MEQ/L BUN 26 H (9-20) mg/dL Creatinine 1.22 (0.66-1.25) mg/dL Estimated GFR > 60.0 ML/MIN Glucose 126 H (74-106) mg/dL Hemoglobin A1c (4.5-6.0) % Calcium 9.9 (8.4-10.2) mg/dL Total Bilirubin 0.70 (0.2-1.3) mg/dL AST 27 (17-59) U/L ALT 20 (0-50) U/L Alkaline Phosphatase 66 (38-126) U/L Troponin I < 0.012 (0.000-0.034) ng/mL Serum Total Protein 7.4 (6.3-8.2) g/dL Albumin 4.5 (3.5-5.0) g/dL Triglycerides (30-150) mg/dL Cholesterol (50-200) mg/dL LDL Cholesterol (30-100) mg/dL HDL Cholesterol (40-60) mg/dL Heart Disease Risk Ratio Urine Opiates Level (NEGATIVE) Ur Methadone (NEGATIVE) Urine Barbiturates (NEGATIVE) Ur Phencyclidine (PCP) (NEGATIVE) Urine Amphetamine (NEGATIVE) U Benzodiazepine Level (NEGATIVE) Urine Cocaine (NEGATIVE) Urine Marijuana (THC) (NEGATIVE) Influenza Type A Ag (NEGATIVE) Influenza Type B Ag (NEGATIVE) RSV (PCR) (Negative) SARS-CoV-2 (PCR) (NEGATIVE) 08/17/21 08/17/21 08/17/21 Range/Units 18:44 20:25 22:55 WBC (4.0-10.5) K/mm3 RBC (4.1-5.6) M/mm3 Hgb (12.5-18.0) gm/dl Hct (42-50) % MCV (78-100) fl MCH (26-32) pg MCHC (32-36) g/dl RDW (11.5-14.0) % Plt Count (150-450) K/mm3 MPV (7.5-11.0) fl Gran % (36.0-66.0) % Eos # (Auto) (0-0.5) Absolute Lymphs (auto) (1.0-4.6) Absolute Monos (auto) (0.0-1.3) Lymphocytes % (24.0-44.0) % Monocytes % (0.0-12.0) % Eosinophils % (0.00-5.0) % Basophils % (0.0-0.4) % Absolute Granulocytes (1.4-6.9) Basophils # (0-0.4) Sodium (137-145) mmol/L Potassium (3.5-5.1) mmol/L Chloride (98-107) mmol/L Carbon Dioxide (22-30) mmol/L Anion Gap (5-15) MEQ/L BUN (9-20) mg/dL Creatinine (0.66-1.25) mg/dL Estimated GFR ML/MIN Glucose (74-106) mg/dL Hemoglobin A1c (4.5-6.0) % Calcium (8.4-10.2) mg/dL Total Bilirubin (0.2-1.3) mg/dL AST (17-59) U/L ALT (0-50) U/L Alkaline Phosphatase (38-126) U/L Troponin I < 0.012 (0.000-0.034) ng/mL Serum Total Protein (6.3-8.2) g/dL Albumin (3.5-5.0) g/dL Triglycerides (30-150) mg/dL Cholesterol (50-200) mg/dL LDL Cholesterol (30-100) mg/dL HDL Cholesterol (40-60) mg/dL Heart Disease Risk Ratio Urine Opiates Level NEGATIVE (NEGATIVE) Ur Methadone NEGATIVE (NEGATIVE) Urine Barbiturates NEGATIVE (NEGATIVE) Ur Phencyclidine (PCP) NEGATIVE (NEGATIVE) Urine Amphetamine NEGATIVE (NEGATIVE) U Benzodiazepine Level NEGATIVE (NEGATIVE) Urine Cocaine NEGATIVE (NEGATIVE) Urine Marijuana (THC) NEGATIVE (NEGATIVE) Influenza Type A Ag NEGATIVE (NEGATIVE) Influenza Type B Ag NEGATIVE (NEGATIVE) RSV (PCR) NEGATIVE (Negative) SARS-CoV-2 (PCR) NEGATIVE (NEGATIVE) 08/17/21 08/18/21 08/18/21 Range/Units 23:30 02:30 02:30 WBC (4.0-10.5) K/mm3 RBC (4.1-5.6) M/mm3 Hgb (12.5-18.0) gm/dl Hct (42-50) % MCV (78-100) fl MCH (26-32) pg MCHC (32-36) g/dl RDW (11.5-14.0) % Plt Count (150-450) K/mm3 MPV (7.5-11.0) fl Gran % (36.0-66.0) % Eos # (Auto) (0-0.5) Absolute Lymphs (auto) (1.0-4.6) Absolute Monos (auto) (0.0-1.3) Lymphocytes % (24.0-44.0) % Monocytes % (0.0-12.0) % Eosinophils % (0.00-5.0) % Basophils % (0.0-0.4) % Absolute Granulocytes (1.4-6.9) Basophils # (0-0.4) Sodium (137-145) mmol/L Potassium (3.5-5.1) mmol/L Chloride (98-107) mmol/L Carbon Dioxide (22-30) mmol/L Anion Gap (5-15) MEQ/L BUN (9-20) mg/dL Creatinine (0.66-1.25) mg/dL Estimated GFR ML/MIN Glucose (74-106) mg/dL Hemoglobin A1c (4.5-6.0) % Calcium (8.4-10.2) mg/dL Total Bilirubin (0.2-1.3) mg/dL AST (17-59) U/L ALT (0-50) U/L Alkaline Phosphatase (38-126) U/L Troponin I < 0.012 < 0.012 (0.000-0.034) ng/mL Serum Total Protein (6.3-8.2) g/dL Albumin (3.5-5.0) g/dL Triglycerides 299 H (30-150) mg/dL Cholesterol 144 (50-200) mg/dL LDL Cholesterol 60 (30-100) mg/dL HDL Cholesterol 39 L (40-60) mg/dL Heart Disease Risk Ratio 3.7 Urine Opiates Level (NEGATIVE) Ur Methadone (NEGATIVE) Urine Barbiturates (NEGATIVE) Ur Phencyclidine (PCP) (NEGATIVE) Urine Amphetamine (NEGATIVE) U Benzodiazepine Level (NEGATIVE) Urine Cocaine (NEGATIVE) Urine Marijuana (THC) (NEGATIVE) Influenza Type A Ag (NEGATIVE) Influenza Type B Ag (NEGATIVE) RSV (PCR) (Negative) SARS-CoV-2 (PCR) (NEGATIVE) 08/18/21 08/18/21 Range/Units 02:30 05:45 WBC (4.0-10.5) K/mm3 RBC (4.1-5.6) M/mm3 Hgb (12.5-18.0) gm/dl Hct (42-50) % MCV (78-100) fl MCH (26-32) pg MCHC (32-36) g/dl RDW (11.5-14.0) % Plt Count (150-450) K/mm3 MPV (7.5-11.0) fl Gran % (36.0-66.0) % Eos # (Auto) (0-0.5) Absolute Lymphs (auto) (1.0-4.6) Absolute Monos (auto) (0.0-1.3) Lymphocytes % (24.0-44.0) % Monocytes % (0.0-12.0) % Eosinophils % (0.00-5.0) % Basophils % (0.0-0.4) % Absolute Granulocytes (1.4-6.9) Basophils # (0-0.4) Sodium (137-145) mmol/L Potassium (3.5-5.1) mmol/L Chloride (98-107) mmol/L Carbon Dioxide (22-30) mmol/L Anion Gap (5-15) MEQ/L BUN (9-20) mg/dL Creatinine (0.66-1.25) mg/dL Estimated GFR ML/MIN Glucose (74-106) mg/dL Hemoglobin A1c 6.74 H (4.5-6.0) % Calcium (8.4-10.2) mg/dL Total Bilirubin (0.2-1.3) mg/dL AST (17-59) U/L ALT (0-50) U/L Alkaline Phosphatase (38-126) U/L Troponin I < 0.012 (0.000-0.034) ng/mL Serum Total Protein (6.3-8.2) g/dL Albumin (3.5-5.0) g/dL Triglycerides (30-150) mg/dL Cholesterol (50-200) mg/dL LDL Cholesterol (30-100) mg/dL HDL Cholesterol (40-60) mg/dL Heart Disease Risk Ratio Urine Opiates Level (NEGATIVE) Ur Methadone (NEGATIVE) Urine Barbiturates (NEGATIVE) Ur Phencyclidine (PCP) (NEGATIVE) Urine Amphetamine (NEGATIVE) U Benzodiazepine Level (NEGATIVE) Urine Cocaine (NEGATIVE) Urine Marijuana (THC) (NEGATIVE) Influenza Type A Ag (NEGATIVE) Influenza Type B Ag (NEGATIVE) RSV (PCR) (Negative) SARS-CoV-2 (PCR) (NEGATIVE) - Radiology Exams Ordered Rad Exams-Entire Visit: Radiology Procedures Category Date Time Status CAROTID BILATERAL [US] Stat Exams 08/18/21 10:[address] ANGIOGRAPHY NECK [CT] Stat Exams 08/17/21 17:31 Completed CTA HEAD W AND/OR WO CONTRAST [CT] Stat Exams 08/17/21 17:32 Completed HEAD WITHOUT CONTRAST [CT] Stat Exams 08/17/21 17:28 Completed MRI BRAIN W & W/O CONTRAST [MRI] Routine Exams 08/18/21 07:00 Completed - Procedures and Test Procedures and Tests throughout Hospitalization: Therapy Orders & Screens 08/17/21 23:49 EKG [id number],QAMX3,PRN Comment: 08/18/21 05:00 EKG DAILY Comment: 08/19/21 05:00 EKG DAILY Comment: 08/20/21 05:00 EKG DAILY Comment: 08/21/21 05:00 EKG DAILY Comment: - Discharge Disposition: Home, Self-Care Condition: Stable Prescriptions: Continue Hctz/Triamteren 37.5 mg/25 mg* [Maxzide-25MG Tablet] 1 tab PO DAILY Metformin HCl 500 mg [Glucophage 500 MG] 1,000 mg PO BIDWM Semaglutide [Ozempic] 1 mg SQ DAILY [place]-3 Fatty Acids/Fish Oil [Fish Oil 1,000 mg Capsule] 1 each PO DAILY Metoprolol Succinate [Toprol Xl] 25 mg PO DAILY Losartan Potassium [Cozaar] 50 mg PO DAILY Insulin Glargine,Hum.rec.anlog [Lantus] 100 unit SQ DAILY Atorvastatin Calcium [Lipitor] 20 mg PO DAILY Instructions: Stroke Follow up with: HOSPITAL,'S [Primary Care Provider] - Forms: CVA Discharge Instructions
[2021-08-19] MEDS ORDERED: NON-FORMULARY ITEM (Omega-3 Fatty Acids/Fish Oil [Fish Oil 1,000 Mg Capsule] 1 EACH Capsul PO SCH (10:00)
[2021-08-19] MEDS ORDERED: NON-FORMULARY ITEM (Atorvastatin Calcium [Lipitor] 20 MG Tablet) PO SCH (10:00)
[2021-08-19] MEDS ORDERED: NON-FORMULARY ITEM (Semaglutide [Ozempic] 1 MG/0.75 ML Pen.Injctr) SQ SCH (10:00)
== END 2021-08-18 13:02 | disposition home or self-care (01) ==
LOC: ED 16:55 → MED SURG 08-18 00:15
PROVIDERS: ADMIT Family Medicine; ATTEND Family Medicine
DX: E11.9 Type 2 diabetes mellitus without complications (principal); R20.8 Other disturbances of skin sensation; I10 Essential (primary) hypertension; E78.5 Hyperlipidemia, unspecified; Z79.899 Other long term (current) drug therapy; Z20.828 Contact with and (suspected) exposure to other viral communicable diseases
CPT/HCPCS: 0241U; 36000; 36415; 70450; 70496; 70498; 70553; 80053; 80061; 80307; 82607; 83036; 83721; 84425; 84484; 85025; 93005; 93041; 93880; 94760; 99285; A9270-GY

== ENCOUNTER 2023-12-03 21:14 | Emergency (ER) | payer OTHER ==
--- NOTE | 2023-12-03 21:17 | ERPHSYRPT ---
- History of Present Illness Time Seen by Provider: 12/03/23 21:17 Source: patient Exam Limitations: no limitations Physician History: This is a 68-year-old white male patient who presents with coughing episodes and mild shortness of breath associated with the coughing spells that began approximately 2 days ago. 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 In addition, there is a neighbor that he is around and is also showing symptoms of viral illness. Patient has a history of diabetes, hypertension, coronary artery disease and hyperlipidemia. Patient did take a friend's dose of Tessalon Perles 2 days ago and this seemed to help. However, yesterday he took the same Tessalon Perles 2 different times and did not help. He does not have chest pain. He does not have abdominal pain. He has had no nausea vomiting or diarrhea symptoms. Timing/Duration: day(s) (2) Severity of Dyspnea-Max: mild Severity of Dyspnea-Current: mild Possible Cause: no prior episodes Associated Symptoms: denies symptoms, cough, No chest pain/discomfort Allergies/Adverse Reactions: lisinopril Adverse Reaction (Severe, Verified 12/03/23 21:50) Cough losartan Adverse Reaction (Severe, Verified 12/03/23 21:50) Cough valsartan Adverse Reaction (Severe, Verified 12/03/23 21:50) Cough Home Medications: Atorvastatin Calcium [Lipitor] 80 mg PO HS 08/17/21 [History] Insulin Glargine,Hum.rec.anlog [Lantus] 56 unit SQ DAILY 08/17/21 [History] Metformin HCl 500 mg [Glucophage 500 MG] 500 mg PO BIDWM 08/17/21 [History] [place]-3 Fatty Acids/Fish Oil [Fish Oil 1,000 mg Capsule] 1 each PO DAILY 08/17/21 [History] Semaglutide [Ozempic] 0.5 mg SQ WEEKLY 08/17/21 [History] Carvedilol 3.125 mg [Coreg 3.125 MG] 3.125 mg PO BID 12/03/23 [History] Clopidogrel Bisulfate [Plavix] 75 mg PO DAILY 12/03/23 [History] Finerenone [Kerendia] 20 mg PO DAILY 12/03/23 [History] Glipizide 10 mg [Glucotrol 10 MG] 10 mg PO BID 12/03/23 [History] Hydralazine HCl 10 mg PO BID 12/03/23 [History] PANTOPRAZOLE 40 mg Tablet [Protonix 40MG Tablet] 40 mg PO BID 12/03/23 [History] Spironolactone 25 mg [Aldactone 25 MG] 25 mg PO DAILY 12/03/23 [History] Hx Tetanus, Diphtheria Vaccination/Date Given: Yes Hx Influenza Vaccination/Date Given: Yes Hx Pneumococcal Vaccination/Date Given: No Travel Risk - International Travel Have you traveled outside of the country in past 3 weeks: No - Emerging Infectious Disease Are you exhibiting symptoms associated with any current EIDs: Yes Symptoms: Cough: New Onset - Review of Systems Constitutional: No Symptoms Eyes: No Symptoms Ears, Nose, & Throat: No Symptoms Respiratory: Cough, Dyspnea Cardiac: No Symptoms (Mild) Abdominal/Gastrointestinal: No Symptoms Genitourinary Symptoms: No Symptoms Musculoskeletal: No Symptoms Skin: No Symptoms Neurological: No Symptoms Psychological: No Symptoms Endocrine: No Symptoms Hematologic/Lymphatic: No Symptoms Immunological/Allergic: No Symptoms All Other Systems: Reviewed and Negative - Past Medical History Pertinent Past Medical History: Yes Neurological History: No Pertinent History ENT History: No Pertinent History Cardiac History: High Cholesterol, Hypertension Respiratory History: No Pertinent History Endocrine Medical History: Diabetes Type II Musculoskeletal History: No Pertinent History GI Medical History: GERD History: No Pertinent History Psycho-Social History: No Pertinent History Male Reproductive Disorders: No Pertinent History - Past Surgical History Past Surgical History: Yes Neuro Surgical History: No Pertinent History Cardiac: No Pertinent History Respiratory: No Pertinent History Gastrointestinal: Appendectomy Genitourinary: No Pertinent History Musculoskeletal: No Pertinent History Male Surgical History: No Pertinent History Other Surgical History: appi. hernia X 2. rt rotator cuff - Social History Smoking Status: Never smoker Exposure to second hand smoke: No Drug Use: none Patient Lives Alone: No - Nursing Vital Signs Nursing Vital Signs: Initial Vital Signs Temperature 99.5 F 12/03/23 21:28 Pulse Rate 90 12/03/23 21:28 Respiratory Rate 18 12/03/23 21:28 Blood Pressure 185/103 12/03/23 21:28 O2 Sat by Pulse Oximetry 96 12/03/23 21:28 Pain Scale Pain Intensity 0 - Physical Exam General Appearance: no apparent distress, alert, anxiety, obese Eye Exam: PERRL/EOMI, eyes nml inspection Ears, Nose, Throat Exam: hearing grossly normal, normal ENT inspection, normal pharynx Neck Exam: normal inspection, non-tender, supple, full range of motion Respiratory Exam: normal breath sounds, lungs clear, airway intact, No chest tenderness, No respiratory distress Cardiovascular/Chest Exam: normal heart sounds, regular rate/rhythm Abdominal/Gastrointestinal Exam: soft, normal bowel sounds, No tenderness Rectal Exam: not done Extremity Exam: non-tender, normal range of motion, normal inspection Neurologic Exam: alert, oriented x 3, cooperative, rip tailer II-XII nml as tested, normal mood/affect, nml cerebellar function, nml station & gait, sensation nml Skin Exam: normal color, warm, dry Lymphatic Exam: No adenopathy SpO2 Interpretation: normal O2 Delivery: Room Air - Course Nursing assessment & vital signs reviewed: Yes EKG Interpreted by Me: RATE ([id number]), Sinus Rhythm, NORMAL AXIS, NORMAL INTERVALS, NORMAL QRS, Other (No acute ischemic changes on today's twelve-lead EKG.) Ordered Tests: Active Orders 24 hr Category Date Time Status Kayak Maker STAT Care 12/03/23 22:04 Active EKG-ER Only STAT Care 12/03/23 21:58 Active IV Insertion STAT Care 12/03/23 21:58 Active Pulse Oximetry (ED) STAT Care 12/03/23 21:58 Active CHEST 1 VIEW (PORTABLE) Stat Exams 12/03/23 21:58 Taken BLOOD CULTURE Stat Lab 12/03/23 22:17 Received CBC W DIFF Stat Lab 12/03/23 21:15 Completed CMP Stat Lab 12/03/23 21:15 Completed Lactic Acid Stat Lab 12/03/23 22:08 Completed MAGNESIUM Stat Lab 12/03/23 21:15 Completed MONO SCREEN Stat Lab 12/03/23 22:00 Completed NT PRO BNPII Stat Lab 12/03/23 21:15 Completed TROPONIN Q4H Lab 12/03/23 21:15 Completed TROPONIN Q4H Lab 12/04/23 02:00 Ordered TROPONIN Q4H Lab 12/04/23 06:00 Ordered Medication Summary Discontinued Medications Generic Name Dose Route Start Last Admin Trade Name Freq PRN Reason Stop Dose Admin Hydrocodone Bitart/Acetaminophen 10 ml 12/03/23 21:59 12/03/23 22:21 Hydrocodone/Acetaminophen 5 Ml Udcup PO 12/03/23 22:00 10 ml STAT STA Administration Hydrocodone Bitart/Acetaminophen Confirm 12/03/23 22:15 Hydrocodone/Acetaminophen 5 Ml Udcup Administered 12/03/23 22:16 Dose 10 ml .ROUTE .STK-MED ONE Methylprednisolone Sodium 0 mg 12/03/23 21:58 12/03/23 22:22 Succinate 125 mg/ Sterile IV 12/03/23 21:59 125 mg Water 2 ml STAT ONE Administration Methylprednisolone Sodium Succinate Confirm 12/03/23 22:15 Methylprednis Sod Succ 125 Mg/2 Ml Vial Administered 12/03/23 22:16 Dose 125 mg .ROUTE .STK-MED ONE Sterile Water Confirm 12/03/23 22:15 Water For Injection,Sterile 10 Ml Vial Administered 12/03/23 22:16 Dose 10 ml IJ .STK-MED ONE Lab/Rad Data: Laboratory Result Diagrams 12/03/23 21:15 12/03/23 21:15 Laboratory Results 12/03/23 12/03/23 12/03/23 Range/Units 22:17 22:08 22:00 WBC (4.0-10.5) x10^3/uL RBC (4.1-5.6) x10^6/uL Hgb (12.5-18.0) g/dL Hct (42-50) % MCV (78-100) fL MCH (26-32) pg MCHC (32-36) g/dL RDW (11.5-14.0) % Plt Count (150-450) x10^3/uL MPV (7.5-11.0) fL Gran % (36.0-66.0) % Immature Gran % (Auto) (0.00-0.4) % Nucleat RBC Rel Count (0.00-0.1) % Eos # (Auto) (0-0.5) x10^3/uL Immature Gran # (Auto) (0.00-0.03) x10^3u/L Absolute Lymphs (auto) (1.0-4.6) x10^3/uL Absolute Monos (auto) (0.0-1.3) x10^3/uL Absolute Nucleated RBC (0.00-0.01) x10^3u/L Lymphocytes % (24.0-44.0) % Monocytes % (0.0-12.0) % Eosinophils % (0.00-5.0) % Basophils % (0.0-0.4) % Absolute Granulocytes (1.4-6.9) x10^3/uL Basophils # (0-0.4) x10^3/uL Sodium (135-145) mmol/L Potassium (3.5-5.1) mmol/L Chloride (98-107) mmol/L Carbon Dioxide (22-30) mmol/L Anion Gap (5-15) MEQ/L BUN (9-20) mg/dL Creatinine (0.66-1.25) mg/dL Estimated GFR ML/MIN Glucose (74-106) mg/dL Lactic Acid 1.2 (0.4-2.0) Calcium (8.4-10.2) mg/dL Magnesium (1.6-2.3) mg/dL Total Bilirubin (0.2-1.3) mg/dL AST (17-59) U/L ALT (0-50) U/L Alkaline Phosphatase (38-126) U/L Troponin I (0.000-0.033) ng/mL NT-Pro-B Natriuret Pep (<300) pg/mL Serum Total Protein (6.3-8.2) g/dL Albumin (3.5-5.0) g/dL Monoscreen POSITIVE (NEGATIVE) Influenza Type A Ag NEGATIVE (NEGATIVE) Influenza Type B Ag NEGATIVE (NEGATIVE) RSV (PCR) NEGATIVE (NEGATIVE) SARS-CoV-2 (PCR) NEGATIVE (NEGATIVE) 12/03/23 12/03/23 12/03/23 Range/Units 21:15 21:15 21:15 WBC 8.5 (4.0-10.5) x10^3/uL RBC 4.91 (4.1-5.6) x10^6/uL Hgb 14.7 (12.5-18.0) g/dL Hct 43.7 (42-50) % MCV 89.0 (78-100) fL MCH 29.9 (26-32) pg MCHC 33.6 (32-36) g/dL RDW 13.2 (11.5-14.0) % Plt Count 232 (150-450) x10^3/uL MPV 11.3 H (7.5-11.0) fL Gran % 64.8 (36.0-66.0) % Immature Gran % (Auto) 0.8 H (0.00-0.4) % Nucleat RBC Rel Count 0.0 (0.00-0.1) % Eos # (Auto) 0.42 (0-0.5) x10^3/uL Immature Gran # (Auto) 0.07 H (0.00-0.03) x10^3u/L Absolute Lymphs (auto) 1.28 (1.0-4.6) x10^3/uL Absolute Monos (auto) 1.20 (0.0-1.3) x10^3/uL Absolute Nucleated RBC 0.00 (0.00-0.01) x10^3u/L Lymphocytes % 15.0 L (24.0-44.0) % Monocytes % 14.1 H (0.0-12.0) % Eosinophils % 4.9 (0.00-5.0) % Basophils % 0.4 (0.0-0.4) % Absolute Granulocytes 5.52 (1.4-6.9) x10^3/uL Basophils # 0.03 (0-0.4) x10^3/uL Sodium 137 (135-145) mmol/L Potassium 4.4 (3.5-5.1) mmol/L Chloride 106 (98-107) mmol/L Carbon Dioxide 22 (22-30) mmol/L Anion Gap 13.3 (5-15) MEQ/L BUN 20 (9-20) mg/dL Creatinine 1.52 H (0.66-1.25) mg/dL Estimated GFR 49.3 ML/MIN Glucose 142 H (74-106) mg/dL Lactic Acid (0.4-2.0) Calcium 9.6 (8.4-10.2) mg/dL Magnesium 2.1 (1.6-2.3) mg/dL Total Bilirubin 0.40 (0.2-1.3) mg/dL AST 29 (17-59) U/L ALT 27 (0-50) U/L Alkaline Phosphatase 64 (38-126) U/L Troponin I < 0.012 (0.000-0.033) ng/mL NT-Pro-B Natriuret Pep 143 (<300) pg/mL Serum Total Protein 7.4 (6.3-8.2) g/dL Albumin 4.2 (3.5-5.0) g/dL Monoscreen (NEGATIVE) Influenza Type A Ag (NEGATIVE) Influenza Type B Ag (NEGATIVE) RSV (PCR) (NEGATIVE) SARS-CoV-2 (PCR) (NEGATIVE) - Progress Progress: improved, re-examined Air Movement: good Progress Note: 12/03/23 22:06 My medical decision making and the assignment of moderate complexity to this patient's medical issue is based on review of the patient's past medical history, review the patient's medication list, history present illness and physical findings on examination. This patient's workup includes placement of intravenous line, infusion of Solu-Medrol 125 mg intravenously, oral hydrocodone elixir to help as a cough suppressant, twelve-lead EKG, troponin level, BNP level, CBC, CMP, viral swabs, monotest and chest x-ray. 12/03/23 22:07 Differential diagnosis includes myocardial infarction, CHF exacerbation, COPD, pneumonia, viral illness, group A strep pharyngitis, upper respiratory infection 12/03/23 23:04 I interpreted the patient's laboratory data results. The patient is positive for mononucleosis. There are no other acute or emergent laboratory data results to suggest an emergency medical issue. Chest x-ray was interpreted by me. No obvious infiltrate present. Questionable left lower lobe atelectasis Blood Culture(s) Obtained: Yes Counseled pt/family regarding: lab results, diagnosis, need for follow-up, rad results Medical Desision Making - Diagnostic Testing Diagnostic test were ordered, analyzed, and reviewed by me: Yes Radiological Interpretation: Interpreted by me - Risk of complications The pt has a mod risk of morbidity or mortality based on: Need for prescription drug management - Departure Departure Disposition: Home Clinical Impression: Mononucleosis, Upper respiratory infection Condition: Stable Critical Care Time: No Referrals: XENIA BATISTA MD [Family Provider] - Follow up/PCP as directed Additional Instructions: Drink plenty of fluids. Take your medication as prescribed. Call your primary care provider on 12/04/2023 to make arrangements for further evaluation management and follow-up appointment in the next 3 to 5 days. Monitor and treat your blood sugar closely while taking the prednisone medication. Prescriptions: Prednisone 10 mg [Deltasone 10 mg] 10 mg PO TID #12 tablet Hydrocodone/Acetaminophen [Hydrocodone-Acetamn 7.5-325/15] 10 ml PO Q8H PRN #120 ml MDD 30 ml PRN Reason: Cough Azithromycin 250 mg [Zithromax 250 MG TABLET] 250 mg PO ZPACK #6 tablet
[2023-12-03 21:47] VITALS: TEMP 99.5
[2023-12-03 22:06] LABS: Absolute Neutrophil Ct (ANC) 5.52 x10^3/uL (1.4-6.9); BASOPHIL % 0.4 % (0.0-0.4); Basophil (Absolute #) 0.03 x10^3/uL (0-0.4); Eosinophil % 4.9 % (0.00-5.0); Eosinophil (Absolute #) 0.42 x10^3/uL (0-0.5); Hematocrit 43.7 % (42-50); Hemoglobin 14.7 g/dL (12.5-18.0); IMMATURE GRAN # 0.07 x10^3u/L (0.00-0.03); IMMATURE GRAN % 0.8 % (0.00-0.4); Lymphocyte (Absolute #) 1.28 x10^3/uL (1.0-4.6); Mean Corpuscular Hemoglobin 29.9 pg (26-32); Mean Corpuscular Hgb Concent. 33.6 g/dL (32-36); Mean Platelet Volume 11.3 fL (7.5-11.0); Monocytes % 14.1 % (0.0-12.0); Neutrophil % 64.8 % (36.0-66.0); Platelet Count 232 x10^3/uL (150-450); Red Blood Count 4.91 x10^6/uL (4.1-5.6); Red Cell Distribution Width 13.2 % (11.5-14.0); White Blood Count 8.5 x10^3/uL (4.0-10.5)
[2023-12-03 22:12] LABS: ALBUMIN 4.2 g/dL (3.5-5.0); ANION GAP 13.3 MEQ/L (5-15); BILIRUBIN,TOTAL 0.4 mg/dL (0.2-1.3); Calcium 9.6 mg/dL (8.4-10.2); Creatinine 1 1.52 mg/dL (0.66-1.25); EST GLOMERULAR FILTRATION RATE 49.3 ML/MIN; MAGNESIUM 2.1 mg/dL (1.6-2.3); Potassium 4.4 mmol/L (3.5-5.1); Total Protein 7.4 g/dL (6.3-8.2)
[2023-12-03] MEDS ORDERED: HYDROCODONE-ACETAMIN 2.5-108/5 ML SOLUTION ONE (22:15)
[2023-12-03] MEDS ORDERED: Sterile H2O 10 ml IJ ONE (22:15)
[2023-12-03] MEDS ORDERED: solu-MEDROL ONE (22:15)
[2023-12-03] MEDS: HYDROCODONE-ACETAMIN 2.5-108/5 ML SOLUTION PO STA (22:21)
[2023-12-03] MEDS: solu-MEDROL 125 MG, Sterile H2O 10 ml 2 ML IV ONE (22:22)
[2023-12-03 22:24] LABS: NT PRO BNPII 143 pg/mL (<300); TROPONIN < 0.012 ng/mL (0.000-0.033)
[2023-12-03 22:56] LABS: INFLUENZA A NEGATIVE (NEGATIVE); INFLUENZA B NEGATIVE (NEGATIVE); RESPIRATORY SYNCTIAL VIRUS NEGATIVE (NEGATIVE); SARS-CoV-2 Xpert Express NEGATIVE (NEGATIVE)
[2023-12-03] MEDS ORDERED: ROCEPHIN 1 GM / 100 ML NaCl 1 GM/100 ML IVPB IV ONE (23:16)
[2023-12-03] MEDS: ROCEPHIN 1 GM / 100 ML NaCl 1 GM/100 ML IVPB IV ONE (23:19)
[2023-12-04 00:04] VITALS: BP 158/71
[2023-12-04 00:29] VITALS: PULSE 76; RESP 16; O2SAT 99
--- NOTE | 2023-12-04 07:10 | XRAY ---
Indication: Cough. Comparison: None Portable apical lordotic chest inflated and clear with incidental tiny right costophrenic angle calcified granuloma. Heart not enlarged. Bony thorax intact with mild degenerative changes. Impression: Nonacute chest with chronic features.
== END 2023-12-04 00:28 | disposition home or self-care (01) ==
LOC: ED 21:14
DX: B27.90 Infectious mononucleosis, unspecified without complication (principal); J06.9 Acute upper respiratory infection, unspecified; R05.1 Acute cough; R06.02 Shortness of breath; E11.9 Type 2 diabetes mellitus without complications; I10 Essential (primary) hypertension; E78.5 Hyperlipidemia, unspecified; Z79.4 Long term (current) use of insulin; Z79.84 Long term (current) use of oral hypoglycemic drugs; Z79.85 Long-term (current) use of injectable non-insulin antidiabetic drugs; Z79.02 Long term (current) use of antithrombotics/antiplatelets; Z79.52 Long term (current) use of systemic steroids; Z79.891 Long term (current) use of opiate analgesic; Z79.899 Other long term (current) drug therapy
CPT/HCPCS: 0241U; 36000; 36415; 71045; 80053; 83605; 83735; 83880; 84484; 85025; 86308; 87040; 93005; 93041; 94760; 96365; 96374; 99284; J0696; J2919; A9270-GY

== ENCOUNTER 2024-01-14 07:32 | Emergency (ER) | payer OTHER ==
--- NOTE | 2024-01-14 08:04 | ERPHSYRPT ---
- History of Present Illness Time Seen by Provider: 01/14/24 07:59 Source: patient, family Exam Limitations: no limitations Patient Subjective Stated Complaint: pt fell yesterday in garage tripped over a 2x4 and landed on he's chest and face Triage Nursing Assessment: pt alert, walked in, resp easy, skin w/d/p. has bruising to left chest area, bruising to right shoulder. swelling with abrasion to nose and left side of face. is unable to lift left shoulder . loose top tooth Physician History: Initial eval was delayed due to a CP pt occupying staff and me. Pt fell over a 2 x 4 yesterday and hit his face and now left shoulder hurts to move and neck is sore also. He is on elliqus. No LOC, Pt has bruised on face, loose left insior but is still in place, left shoulder pain with motion active and passive. abrasions knees but nontender with full ROM. Abd soft nontender without peritoneal signs or distension or masses. T and L spine nontender. Tender anterior chest. Full ROM right shoulder without pain and NOntender. All ext N/V intact. distally. Discussed risks/benefits of CT face, C spine, Head, Left shoulder, and chest , with pt and available family , and CBC, CMP , UA EKG and TRop and they wish to proceed. So these are ordered. Results discussed with pt and family. Occurred: yesterday Reason for Fall: tripped Injuries/Pain Location: head, face, neck, upper extremity, chest Loss of Consciousness: no loss of consciousness Quality: sharpness Severity of Pain-Max: moderate Severity of Pain-Current: moderate Modifying Factors: Improves With: cold therapy, immobilization, movement Associated Symptoms (Fall): extremity injury, neck pain Allergies/Adverse Reactions: lisinopril Adverse Reaction (Severe, Verified 01/14/24 08:09) Cough losartan Adverse Reaction (Severe, Verified 01/14/24 08:09) Cough valsartan Adverse Reaction (Severe, Verified 01/14/24 08:09) Cough Home Medications: Atorvastatin Calcium [Lipitor] 80 mg PO HS 08/17/21 [History] Insulin Glargine,Hum.rec.anlog [Lantus] 56 unit SQ DAILY 08/17/21 [History] Metformin HCl 500 mg [Glucophage 500 MG] 500 mg PO BIDWM 08/17/21 [History] [place]-3 Fatty Acids/Fish Oil [Fish Oil 1,000 mg Capsule] 1 each PO DAILY 08/17/21 [History] Semaglutide [Ozempic] 0.5 mg SQ WEEKLY 08/17/21 [History] Carvedilol 3.125 mg [Coreg 3.125 MG] 3.125 mg PO BID 12/03/23 [History] Clopidogrel Bisulfate [Plavix] 75 mg PO DAILY 12/03/23 [History] Finerenone [Kerendia] 20 mg PO DAILY 12/03/23 [History] Glipizide 10 mg [Glucotrol 10 MG] 10 mg PO BID 12/03/23 [History] Hydralazine HCl 10 mg PO BID 12/03/23 [History] PANTOPRAZOLE 40 mg Tablet [Protonix 40MG Tablet] 40 mg PO BID 12/03/23 [History] Spironolactone 25 mg [Aldactone 25 MG] 25 mg PO DAILY 12/03/23 [History] Hx Tetanus, Diphtheria Vaccination/Date Given: Yes Hx Influenza Vaccination/Date Given: Yes Hx Pneumococcal Vaccination/Date Given: No Travel Risk - International Travel Have you traveled outside of the country in past 3 weeks: No - Emerging Infectious Disease Are you exhibiting symptoms associated with any current EIDs: No Symptoms: Cough: New Onset - Review of Systems Constitutional: No Fever, No Chills Eyes: No Symptoms Ears, Nose, & Throat: No Symptoms Respiratory: No Cough, No Dyspnea Cardiac: No Chest Pain, No Edema, No Syncope Abdominal/Gastrointestinal: No Abdominal Pain, No Nausea, No Vomiting, No Diarrhea Genitourinary Symptoms: No Dysuria Musculoskeletal: No Back Pain, No Neck Pain Skin: No Symptoms, No Rash Neurological: No Dizziness, No Focal Weakness, No Sensory Changes Psychological: No Symptoms Endocrine: No Symptoms Hematologic/Lymphatic: No Symptoms Immunological/Allergic: No Symptoms All Other Systems: Reviewed and Negative - Past Medical History Pertinent Past Medical History: Yes Neurological History: No Pertinent History ENT History: No Pertinent History Cardiac History: High Cholesterol, Hypertension Respiratory History: No Pertinent History Endocrine Medical History: Diabetes Type II Musculoskeletal History: No Pertinent History GI Medical History: GERD History: No Pertinent History Psycho-Social History: No Pertinent History Male Reproductive Disorders: No Pertinent History Other Medical History: h/o afib in March 2023 with heart cath then NSR since that time. - Past Surgical History Past Surgical History: Yes Neuro Surgical History: No Pertinent History Cardiac: No Pertinent History Respiratory: No Pertinent History Gastrointestinal: Appendectomy Genitourinary: No Pertinent History Musculoskeletal: No Pertinent History Male Surgical History: No Pertinent History Other Surgical History: appi. hernia X 2. rt rotator cuff - Social History Smoking Status: Never smoker Exposure to second hand smoke: No Drug Use: none Patient Lives Alone: No - Social Determinants of Health Will the patient participate in the screening: Yes Do you worry about a steady place to live?: No Do you have any problems with any of the following?: No known problems In the past 12 months,have you had to go without utilities?: No Transportation Issues: No Has anyone in your support network made you feel unsafe?: No Have you or anyone in your house had to go without enough: No - Nursing Vital Signs Nursing Vital Signs: Initial Vital Signs Blood Pressure 163/96 01/14/24 08:00 O2 Sat by Pulse Oximetry 94 L 01/14/24 08:00 Pain Scale Pain Intensity 10 - Cookson Coma Score Best Eye Response (Cookson): (4) open spontaneously Best Verbal Response (Cookson): (5) oriented Best Motor Response (Catina): (6) obeys commands Cookson Total: 15 - Physical Exam General Appearance: no apparent distress, alert Head Injury: no evidence of injury Eye Exam: PERRL/EOMI ENT Exam: airway nml, dental injury, clotted nasal blood Neck Exam: trachea midline, full range of motion, normal alignment, normal inspection, No focal neuro deficit, No tenderness Respiratory/Chest Exam: chest tenderness, normal breath sounds, No respiratory distress Cardiovascular Exam: normal heart sounds, regular rate/rhythm Gastrointestinal Exam: soft, No tenderness, No distention, No guarding, No ecchymosis Rectal Exam: deferred Back Exam: normal inspection, No vertebral tenderness Extremity Exam: normal inspection, normal range of motion, pelvis stable, No deformities Peripheral Pulses: carotid (R): 2+, carotid (L): 2+, femoral (R): 2+, femoral (L): 2+, dorsalis-pedis (R): 2+, dorsalis-pedis (L): 2+ Neurologic Exam: alert, oriented x 3, cooperative, furnace keeper II-XII nml as tested, normal mood/affect, nml cerebellar function, nml station & gait, sensation nml, No motor deficits Skin Exam: normal color, warm, dry SpO2 Interpretation: normal SpO2: 96 O2 Delivery: Room Air Procedures - Splinting Location of Splint: Left - Course Nursing assessment & vital signs reviewed: Yes - CT Exams Maxillofacial Bones CT Interpretation: Tele-radiologist Report, Fracture (nasal minimal displaced) Head CT Interpretation: Tele-radiologist Report, No/Intracranial Hemorrhag, Other (microvasc changes unchanged from prior) Cervical Spine CT Interpretation: Tele-radiologist Report, No Fracture, Other (DDD and disc p rotusion C6 ) Left Upper Extremity CT Interpretation: Tele-radiologist Report, No Fracture, Other (DJD) Chest CT Interpretation: Tele-radiologist Report, Other (atelectatic calcifications, left first rib lucency. Calcified nodes.) Ordered Tests: Active Orders 24 hr Category Date Time Status CERVICAL SPINE WO CONTRAST [CT] Stat Exams 01/14/24 08:09 Completed CHEST WITHOUT CONTRAST [CT] Stat Exams 01/14/24 08:09 Completed FACIAL BONES WO CONTRAST [CT] Stat Exams 01/14/24 08:11 Completed HEAD WITHOUT CONTRAST [CT] Stat Exams 01/14/24 08:09 Completed UPPER EXTREMITY W/O CONTRAST [CT] Stat Exams 01/14/24 08:10 Completed CBC W DIFF Stat Lab 01/14/24 09:21 Completed CMP Stat Lab 01/14/24 09:21 Completed TROPONIN Q4H Lab 01/14/24 09:21 Completed TROPONIN Q4H Lab 01/14/24 11:45 Completed TROPONIN Q4H Lab 01/14/24 16:15 Ordered UA W/RFX UR CULTURE Stat Lab 01/14/24 09:19 Completed Lab/Rad Data: Laboratory Result Diagrams 01/14/24 09:21 01/14/24 09:21 Laboratory Results 01/14/24 01/14/24 01/14/24 Range/Units 11:45 09:21 09:21 WBC (4.23-9.07) x10^3/uL RBC (4.63-6.08) x10^6/uL Hgb (13.7-17.5) g/dL Hct (40.1-51.0) % MCV (79.0-92.2) fL MCH (25.7-32.2) pg MCHC (32.3-36.5) g/dL RDW (11.6-14.4) % Plt Count (163-337) x10^3/uL MPV (9.4-12.4) fL Gran % (34.0-67.9) % Immature Gran % (Auto) (0.001-0.429) % Nucleat RBC Rel Count (0.00-0.2) % Eos # (Auto) (0.04-0.54) x10^3/uL Immature Gran # (Auto) (0.001-0.031) x10^3u/L Absolute Lymphs (auto) (1.32-3.57) x10^3/uL Absolute Monos (auto) (0.30-0.82) x10^3/uL Absolute Nucleated RBC (0.00-0.012) x10^3u/L Lymphocytes % (21.8-53.1) % Monocytes % (5.3-12.2) % Eosinophils % (0.8-7.0) % Basophils % (0.2-1.2) % Absolute Granulocytes (1.78-5.38) x10^3/uL Basophils # (0.01-0.08) x10^3/uL Sodium 137 (135-145) mmol/L Potassium 4.3 (3.5-5.1) mmol/L Chloride 108 H (98-107) mmol/L Carbon Dioxide 21 L (22-30) mmol/L Anion Gap 12.8 (5-15) MEQ/L BUN 18 (9-20) mg/dL Creatinine 1.28 H (0.66-1.25) mg/dL Estimated GFR 60.6 ML/MIN Glucose 119 H (74-106) mg/dL Calcium 9.5 (8.4-10.2) mg/dL Total Bilirubin 0.40 (0.2-1.3) mg/dL AST 26 (17-59) U/L ALT 22 (0-50) U/L Alkaline Phosphatase 69 (38-126) U/L Troponin I < 0.012 < 0.012 (0.000-0.033) ng/mL Serum Total Protein 7.3 (6.3-8.2) g/dL Albumin 4.2 (3.5-5.0) g/dL Urine Color (Yellow) Urine Appearance (Clear) Urine pH (4.6-8.0) Ur Specific Willard (1.005-1.030) Urine Protein (Negative) Urine Glucose (UA) (Negative) mg/dL Urine Ketones (Negative) Urine Blood (Negative) Urine Nitrite (Negative) Urine Bilirubin (Negative) Urine Urobilinogen (0.2) mg/dL Ur Leukocyte Esterase (Negative) U Hyaline Cast (Auto) (0-2) /LPF Urine Microscopic RBC (0-5) /HPF Urine Microscopic WBC (0-5) /HPF Ur Epithelial Cells (None Seen) /HPF Urine Bacteria (None Seen) /HPF Urine Culture Reflexed (NO) 01/14/24 01/14/24 Range/Units 09:21 09:19 WBC 8.3 (4.23-9.07) x10^3/uL RBC 4.82 (4.63-6.08) x10^6/uL Hgb 14.3 (13.7-17.5) g/dL Hct 42.7 (40.1-51.0) % MCV 88.6 (79.0-92.2) fL MCH 29.7 (25.7-32.2) pg MCHC 33.5 (32.3-36.5) g/dL RDW 13.5 (11.6-14.4) % Plt Count 223 (163-337) x10^3/uL MPV 10.8 (9.4-12.4) fL Gran % 71.2 H (34.0-67.9) % Immature Gran % (Auto) 1.0 H (0.001-0.429) % Nucleat RBC Rel Count 0.0 (0.00-0.2) % Eos # (Auto) 0.17 (0.04-0.54) x10^3/uL Immature Gran # (Auto) 0.08 H (0.001-0.031) x10^3u/L Absolute Lymphs (auto) 1.35 (1.32-3.57) x10^3/uL Absolute Monos (auto) 0.77 (0.30-0.82) x10^3/uL Absolute Nucleated RBC 0.00 (0.00-0.012) x10^3u/L Lymphocytes % 16.2 L (21.8-53.1) % Monocytes % 9.2 (5.3-12.2) % Eosinophils % 2.0 (0.8-7.0) % Basophils % 0.4 (0.2-1.2) % Absolute Granulocytes 5.93 H (1.78-5.38) x10^3/uL Basophils # 0.03 (0.01-0.08) x10^3/uL Sodium (135-145) mmol/L Potassium (3.5-5.1) mmol/L Chloride (98-107) mmol/L Carbon Dioxide (22-30) mmol/L Anion Gap (5-15) MEQ/L BUN (9-20) mg/dL Creatinine (0.66-1.25) mg/dL Estimated GFR ML/MIN Glucose (74-106) mg/dL Calcium (8.4-10.2) mg/dL Total Bilirubin (0.2-1.3) mg/dL AST (17-59) U/L ALT (0-50) U/L Alkaline Phosphatase (38-126) U/L Troponin I (0.000-0.033) ng/mL Serum Total Protein (6.3-8.2) g/dL Albumin (3.5-5.0) g/dL Urine Color Yellow (Yellow) Urine Appearance Clear (Clear) Urine pH 5.5 (4.6-8.0) Ur Specific Willard 1.025 (1.005-1.030) Urine Protein 100 A (Negative) Urine Glucose (UA) >=1000 A (Negative) mg/dL Urine Ketones Negative (Negative) Urine Blood Negative (Negative) Urine Nitrite Negative (Negative) Urine Bilirubin Negative (Negative) Urine Urobilinogen 0.2 (0.2) mg/dL Ur Leukocyte Esterase Negative (Negative) U Hyaline Cast (Auto) NONE SEEN (0-2) /LPF Urine Microscopic RBC 0-2 (0-5) /HPF Urine Microscopic WBC 0-2 (0-5) /HPF Ur Epithelial Cells None Seen (None Seen) /HPF Urine Bacteria None Seen (None Seen) /HPF Urine Culture Reflexed NO (NO) - Progress Progress: improved, re-examined Progress Note: 01/14/24 12:33 discussed with pt results lung nodules, creatinine, calc in thyroid and need for f/u and also that although CT does not show internal injuries - with the first rib possibly fx there is higher risk and there still could be undetected injuries evolving tanya with elliqus. He understands and wishes outpt f/u rather than furhter eval in ER or hospital obs at this time and has the capacity to make this choice. 01/14/24 12:55 discussed risk/benefit with pt and available family and they wish to proceed. Counseled pt/family regarding: lab results, diagnosis, need for follow-up, rad results Medical Desision Making - Independent Historian Additional History obtained from: Family - Discussion of managment Reviewed:: Test results, Need for additional workup Agreed on:: Treatment plan, need for follow-up - Diagnostic Testing Diagnostic test were ordered, analyzed, and reviewed by me: Yes Radiological Interpretation: Teleradiologist Report - Risk of complications The pt has a mod risk of morbidity or mortality based on: Need for prescription drug management The pt has a high risk of morbidity or mortality based on: Decision regarding hospitilization or escalation of hosp level of care - Departure Departure Disposition: Home Clinical Impression: Nasal fracture, Concussion, Injury of left shoulder, Rib fracture, Pulmonary nodule, Thyroid nodule Condition: Good Critical Care Time: No Referrals: SATNAM DESOUZA, SALES PERSON [Primary Care Provider] - Follow up/PCP as directed Instructions: Contusion (DC), Rotator Cuff Injury (DC), Preventing falls in adults, Thyroid nodules, Multiple pulmonary nodules, Concussion, Adult ED, Shoulder Sprain ED, Rib Fracture or Bruised Rib ED, Nose Fracture ED Additional Instructions: See your DrKate in followup for your nodules of lung and thyroid, rib fracture, shoulder injury with may be rotator cuff, and nasal fracture. There may be developing injuries not yet seen on the cat scans so that followup is important and for you to return or see meantime if further symptoms occur or not improving. coordinate with your DrKate on your medications. Use tylenol for pain and the norco if needed - no driving when taking the norco. Prescriptions: Hydrocodone/Acetaminophen [Hydrocodone-Acetamin 5-325 mg] 1 tab PO Q6HPRN PRN #10 tablet MDD 4 PRN Reason: Pain
[2024-01-14 08:08] VITALS: RESP 18; TEMP 97.6
[2024-01-14 09:25] LABS: Absolute Neutrophil Ct (ANC) 5.93 x10^3/uL (1.78-5.38); BASOPHIL % 0.4 % (0.2-1.2); Basophil (Absolute #) 0.03 x10^3/uL (0.01-0.08); Eosinophil (Absolute #) 0.17 x10^3/uL (0.04-0.54); Hematocrit 42.7 % (40.1-51.0); Hemoglobin 14.3 g/dL (13.7-17.5); IMMATURE GRAN # 0.08 x10^3u/L (0.001-0.031); Lymphocyte (Absolute #) 1.35 x10^3/uL (1.32-3.57); Lymphocytes % 16.2 % (21.8-53.1); Mean Cell Volume 88.6 fL (79.0-92.2); Mean Corpuscular Hemoglobin 29.7 pg (25.7-32.2); Mean Corpuscular Hgb Concent. 33.5 g/dL (32.3-36.5); Mean Platelet Volume 10.8 fL (9.4-12.4); Monocyte (Absolute #) 0.77 x10^3/uL (0.30-0.82); Monocytes % 9.2 % (5.3-12.2); Neutrophil % 71.2 % (34.0-67.9); Platelet Count 223 x10^3/uL (163-337); Red Blood Count 4.82 x10^6/uL (4.63-6.08); Red Cell Distribution Width 13.5 % (11.6-14.4); White Blood Count 8.3 x10^3/uL (4.23-9.07)
--- NOTE | 2024-01-14 09:28 | XRAY ---
CLINICAL HISTORY: neck pain after fall COMPARISON: None. TECHNIQUE: Multiple axial images of CT cervical spine without IV contrast were submitted in bone and soft tissue window. One of the following dose reduction techniques was utilized for this exam: Automated exposure control, adjustment of the mA and/or kV according to patient size, use of iterative reconstruction? FINDINGS: Straightened cervical curve denoting myospasm. Minimal anterolitheisis of C2 over C3, C3 over C4, and C4 over C5 vertebrae. The examined vertebral bodies show no structural collapse or posterior neural element fractures. Degenerative changes of the atlanto-odontoid articulation. Cervical spondylodegenerative changes are evident by marginal osteophytic lipping and multilevel subchondral sclerosis of the examined vertebral end with C4-C5 and C5-C6 disc spaces narrowing. Anterior longitudinal ligament/annular calcification opposite C5-C6 level noted. Bilateral C5-C6 and to less extent C4-C5 and C3-C4 degenerative unco-vertebral arthropathy with osteophytes formation seen encroaching upon the corresponding neural exit foramina. Multilevel degenerative facet arthropathy, most evident opposite right C2-C3 and left C3-C4 levels. C5-C6: broad based posterior disc protrusion/osteophyte complex indenting the theca and encroaching upon the related neural exit foramina. IMPRESSION: 1. Straightened cervical curve denoting myospasm. 2. Minimal anterolitheisis of C2 over C3, C3 over C4, and Cn4 over C5 vertebrae most likely degenerative. 3. Cervical spondylodegenerative changes with multilevel degenerative unco-vertebral and facet arthropathy encroaching upon the corresponding neural exit foramina. 4. C5-C6: broad-based posterior disc protrusion/osteophyte complex indenting the theca and encroaching upon the related neural exit foramina. Electronically Signed by: Martin Lennon MD. (01/14/2024 09:23:38 EDT)
--- NOTE | 2024-01-14 09:31 | XRAY ---
CLINICAL HISTORY: face trauma and tenderness COMPARISON: None. TECHNIQUE: Fine slice non-contrast helical CT images were obtained through the maxillofacial bones with multiple reformats. One of the following dose reduction techniques were utilized for this exam: Automated exposure control, adjustment of the mA and/or kV according to patient size, use of iterative reconstruction? FINDINGS: Minimally depressed fracture of the left nasal bone with overlying subcutaneous soft tissue edema. The right nasal bone is intact with no fractures. Subtle bowing of the bony nasal septum convex to the right side with bowing of its cartilaginous segment to the left side. The scanned paranasal sinuses show intact bony boundaries. Focal polypoid mucosal thickening of the maxillary antra, sofi evident on the right side. Clear ethmoidal air cells, frontal and sphenoid sinuses. Patent osteomeatal unit and both sphenoethmoidal recesses. The pterygoid plates and pterygopalatine fossa are normal. The zygomatic arch is normal and there is no diastasis of the frontozygomatic suture. Normal osseous texture of the mandible with no fractures or destructive osseous lesions. Normal temporomandibular joints. The orbital bony boundaries are intact. The orbits have a normal appearance with unremarkable eye globes and extra-ocular muscles. Clear intra-orbital fat planes. IMPRESSION: 1. Minimally depressed fracture of the left nasal bone with overlying subcutaneous soft tissue edema. 2. Subtle bowing of the bony nasal septum convex to the right side with bowing of its cartilaginous segment to the left side. 3. Focal polypoid mucosal thickening of the maxillary antra, sofi evident on the right side. [facility] ER was called at [phone] at 08:21 AM INSPECTOR BARREL, 01/14/2024 and results were verbally communicated to Adolph Schmitt Electronically Signed by: Martin Lennon MD. (01/14/2024 09:27:25 EDT)
[2024-01-14 09:32] LABS: Appearance Clear (Clear); Bacteria None Seen /HPF (None Seen); Bilirubin Negative (Negative); Blood Negative (Negative); Epithelial Cells None Seen /HPF (None Seen); Glucose, Urine >=1000 mg/dL (Negative); Hyaline Casts NONE SEEN /LPF (0-2); Ketones Negative (Negative); Leukocyte Esterase Negative (Negative); Nitrite Negative (Negative); Ph 5.5 (4.6-8.0); Protein,Urine Dip 100 (Negative); RBC 0-2 /HPF (0-5); Specific Gravity 1.025 (1.005-1.030); Urobilinogen 0.2 mg/dL (0.2); WBC 0-2 /HPF (0-5)
[2024-01-14 09:36] LABS: ALBUMIN 4.2 g/dL (3.5-5.0); ANION GAP 12.8 MEQ/L (5-15); BILIRUBIN,TOTAL 0.4 mg/dL (0.2-1.3); Calcium 9.5 mg/dL (8.4-10.2); Creatinine 1 1.28 mg/dL (0.66-1.25); EST GLOMERULAR FILTRATION RATE 60.6 ML/MIN; Potassium 4.3 mmol/L (3.5-5.1); Total Protein 7.3 g/dL (6.3-8.2)
[2024-01-14 09:45] LABS: ADD URINE CULTURE? NO (NO)
--- NOTE | 2024-01-14 09:56 | XRAY ---
CLINICAL HISTORY: head trauma COMPARISON: 08/17/2021 TECHNIQUE: Axial noncontrast CT scan of the brain was performed from the skull base to the high parietal region. One of the following dose reduction techniques was utilized for this exam: Automated exposure control, adjustment of the mA and/or kV according to patient size, use of iterative reconstruction? FINDINGS: No intracerebral or extra axial hematoma. Relatively accentuated bilateral cerebral periventricular white matter hypodensities denoting hypoperfusion with bilateral frontoparietal periventricular and subcortical hypodense foci are noted. The warner-white matter differentiation is preserved. Normal CT appearance of the posterior fossa structures namely the cerebellar hemispheres, brain stem, and cerebellar peduncles. Prominent ventricular system, cortical sulci, and extra-axial CSF spaces. No midline shifts or deformity. No definite calvarial fractures. Minimally depressed fracture of the left nasal bone. The osseous structures in the skull base are unremarkable. IMPRESSION: 1. Minimally depressed fracture of the left nasal bone. 2. No intra or extra-axial hematomas or parenchymal territorial hypodense areas suggestive of acute ischemic insult. Early changes of stroke may not be detected on a CT scan. If strong clinical suspicion of stroke then suggest MRI with diffusion-weighted imaging these findings are unchanged since prior study. 3. Mild microvascular ischemic changes with age matches mild brain involutional changes these findings are unchanged since prior study. [facility] ER was called at [phone] at 08:21 AM EMERGENCY VEHICLE OPERATOR, 01/14/2024 and results were verbally communicated to Adolph Schmitt Electronically Signed by: Martin Lennon MD. (01/14/2024 09:52:30 EDT)
--- NOTE | 2024-01-14 10:10 | XRAY ---
CLINICAL HISTORY: chest tenderness after fall on [place] COMPARISON: None. TECHNIQUE: Axial CT images of the chest were acquired without the administration of intravenous contrast. Coronal and sagittal reconstructions were obtained."One of the following dose reduction techniques was utilized for this exam: Automated exposure control, adjustment of the mA and/or kV according to patient size, and use of iterative reconstruction." FINDINGS: The lucent fissure line noted at the left first rib anteriorly could be a fissure fracture. A few small calcific nodules were noted in the medial segment of the middle lobe with the related atelectatic band, the largest measuring 9x5.2 mm, which could be granulomas. Bilateral basal faint reticulations could be past infection residual. Few small calcific mediastinal lymphadenopathy, the largest -measuring 15 mm. The scanned pulmonary parenchyma shows no definite consolidative lesions. No free or encysted pleural effusion. Heart size is normal, and there is no pericardial effusion. No pathologically enlarged hilar, or axillary lymph node was identified. There is no definite mass lesion in the chest wall. The scanned upper abdomen showed multiple tiny splenic calcific foci, and the right hepatic calcific focus, could be granulomas. Small sliding hiatus hernia noted. Tiny nodules noted in the thyroid isthmus and right lobe-isthmus connection measures 10x 11 mm and 6.1x 5.5 mm respectively. Coronary arterial atherosclerotic calcifications. Mild thoracic aortic intimal calcifications. Bilateral acromioclavicular joints arthrosis. IMPRESSION: 1. The lucent fissure line noted at the left first rib anteriorly could be a fissure fracture, follow up recommended. 2. No lung contusions or pnemothorax. 3. A few small calcific nodules were noted in the medial segment of the middle lobe with the related atelectatic band, which could be granulomas. 4. Bilatearl basal faint reticulations could be past infection residual. 5. Additional findings as described. [facility] ER was called at [phone] at 08:31 AM NEUROPSYCHOLOGIST, 01/14/2024 and results were verbally communicated to Adolph Schmitt Electronically Signed by: Martin Lennon MD. (01/14/2024 10:05:35 EDT)
--- NOTE | 2024-01-14 10:24 | XRAY ---
CLINICAL HISTORY: pain left shoulder after fall COMPARISON: None TECHNIQUE: Thin non-contrast axial images of the left shoulder joint were obtained with sagittal and coronal reconstruction. One of the following dose reduction techniques were utilized for this exam: Automated exposure control, adjustment of the mA and/or kV according to patient size, use of iterative reconstruction FINDINGS: Acromioclavicular joint arthrosis in the form of joint narrowing and bone hypertrophy as well as tiny subchondral cystic erosions compressing the underlying myotendinous junction of the supraspinatus muscle. Small anterior glenoid bone hypertrophy, could be early glenohumeral arthrosis. The visualized bones; the scapula, clavicle, and humerus reveal normal appearance. No lytic or sclerotic bone lesion. No evidence of obvious fracture. No evidence of subluxation or dislocation. The rotator cuff tendons are unremarkable. IMPRESSION: 1. No evidence of obvious fracture. 2. Acromioclavicular joint arthrosis in the form of joint narrowing and bone hypertrophy. 3. Small anterior glenoid bone hypertrophy, could be early glenohumeral arthrosis. Electronically Signed by: Martin Lennon MD. (01/14/2024 10:19:55 EDT)
[2024-01-14 12:35] VITALS: BP 156/97; PULSE 80
[2024-01-14 12:43] VITALS: O2SAT 96
== END 2024-01-14 12:57 | disposition home or self-care (01) ==
LOC: ED 07:32
DX: S02.2XXA Fracture of nasal bones, initial encounter for closed fracture (principal); S06.0X0A Concussion without loss of consciousness, initial encounter; S22.32XA Fracture of one rib, left side, initial encounter for closed fracture; S49.92XA Unspecified injury of left shoulder and upper arm, initial encounter; W01.0XXA Fall on same level from slipping, tripping and stumbling without subsequent striking against object, initial encounter; E04.1 Nontoxic single thyroid nodule; R91.1 Solitary pulmonary nodule; M54.2 Cervicalgia; E78.5 Hyperlipidemia, unspecified; I10 Essential (primary) hypertension; E11.9 Type 2 diabetes mellitus without complications; Z79.891 Long term (current) use of opiate analgesic; Z79.01 Long term (current) use of anticoagulants; Z79.4 Long term (current) use of insulin; Z79.84 Long term (current) use of oral hypoglycemic drugs; Z79.85 Long-term (current) use of injectable non-insulin antidiabetic drugs; Z79.899 Other long term (current) drug therapy
CPT/HCPCS: 36415; 70450; 70486; 71250; 72125; 73200; 80053; 81001; 84484; 85025; 99283

== ENCOUNTER 2024-05-07 13:59 | Emergency (ER) | payer OTHER ==
[2024-05-07 14:34] VITALS: RESP 18; TEMP 98
[2024-05-07 14:43] LABS: Absolute Neutrophil Ct (ANC) 7.98 x10^3/uL (1.78-5.38); BASOPHIL % 0.3 % (0.2-1.2); Basophil (Absolute #) 0.03 x10^3/uL (0.01-0.08); Eosinophil % 2.5 % (0.8-7.0); Eosinophil (Absolute #) 0.26 x10^3/uL (0.04-0.54); Hematocrit 28.9 % (40.1-51.0); IMMATURE GRAN # 0.16 x10^3u/L (0.001-0.031); IMMATURE GRAN % 1.5 % (0.001-0.429); Lymphocyte (Absolute #) 1.32 x10^3/uL (1.32-3.57); Lymphocytes % 12.6 % (21.8-53.1); Mean Cell Volume 93.2 fL (79.0-92.2); Mean Corpuscular Hgb Concent. 31.1 g/dL (32.3-36.5); Mean Platelet Volume 10.6 fL (9.4-12.4); Monocyte (Absolute #) 0.75 x10^3/uL (0.30-0.82); Monocytes % 7.1 % (5.3-12.2); NUCLEATED RBC # 0.04 x10^3u/L (0.00-0.012); NUCLEATED RBC % 0.4 % (0.00-0.2); Platelet Count 525 x10^3/uL (163-337); Red Cell Distribution Width 14.6 % (11.6-14.4); White Blood Count 10.5 x10^3/uL (4.23-9.07)
[2024-05-07] MEDS ORDERED: PIPERACILLIN/TAZOBACTAM IV ONE (14:44)
[2024-05-07] MEDS ORDERED: Sodium Chloride 100ML MINI-BAG PLUS 100 ML IV ONE (14:44)
[2024-05-07] MEDS: PIPERACILLIN/TAZOBACTAM 3.375 GM in Sodium Chloride 100ML MINI-BAG PLUS 100 ML IV ONE (14:47)
--- NOTE | 2024-05-07 14:49 | ERPHSYRPT ---
- History of Present Illness Time Seen by Provider: 05/07/24 14:44 Source: patient, family Exam Limitations: no limitations Patient Subjective Stated Complaint: left lower leg/foot pain. open wound Triage Nursing Assessment: pt to ED c/o LLE pain and swelling. had quad bypass 2 weeks ago, sent home with RUSS hose, when removing hose 2 days ago noticed "water blister" on left foot that popped. 1.5 in x 1 in open, sloughing wound noted to left foot, dorsal plane. left lower leg swollen below knee to ankle. tenderness to left foot/toes. Physician History: 68 years old male with past medical history of coronary artery disease status post CABG x 3 vessels 2 weeks ago at the [facility] in [place]. The patient has a history of type 2 diabetes currently on insulin. The patient is presenting to the emergency room with a chief complaint of pain swelling and open wound to the dorsal surface of his left foot that he has been having for at least a week. The patient states that he was discharged from the [facility] after his bypass 2 weeks ago he was wearing a RUSS hose which was tight to his left lower extremi ty where he had his saphenous vein stripped for the bypass. The patient remove the RUSS hose a week ago and since then he has been having a blister which broke up into an open wound. He denies any fever or chills. The wound is draining puslike material. Allergies/Adverse Reactions: lisinopril Adverse Reaction (Severe, Verified 05/07/24 14:34) Cough losartan Adverse Reaction (Severe, Verified 05/07/24 14:34) Cough valsartan Adverse Reaction (Severe, Verified 05/07/24 14:34) Cough Home Medications: Acetaminophen 325 mg [Tylenol 325 mg] 325 mg PO DAILY PRN PRN 05/07/24 [History] Apixaban [Eliquis 2.5 mg Tablet] 2.5 mg PO BID 05/07/24 [History] Aspirin [Aspirin EC] 81 mg PO DAILY 05/07/24 [History] Atorvastatin Calcium [Lipitor] 80 mg PO DAILY 05/07/24 [History] Benzonatate 100 mg PO DAILY PRN PRN 05/07/24 [History] Carvedilol 12.5 mg [Coreg 12.5 mg] 12.5 mg PO BID 05/07/24 [History] Docusate Calcium [Stool Softener] 240 mg PO BID 05/07/24 [History] Empagliflozin [Jardiance] 10 mg PO DAILY 05/07/24 [History] Ezetimibe 10 mg [Zetia 10 MG] 10 mg PO DAILY 05/07/24 [History] Fenofibrate 45 mg PO DAILY 05/07/24 [History] Finerenone [Kerendia] 10 mg PO DAILY 05/07/24 [History] Furosemide 20 mg [Lasix 20 mg] 20 mg PO DAILY PRN PRN 05/07/24 [History] Lidocaine [Lidocaine Pain Relief] 1 each TP DAILY PRN PRN 05/07/24 [History] Methocarbamol [Robaxin] 500 mg PO DAILY PRN PRN 05/07/24 [History] Naloxone HCl [Narcan] 4 mg NS DAILY 05/07/24 [History] Nitroglycerin [Nitrostat] 0.3 mg SL DAILY PRN PRN 05/07/24 [History] Pantoprazole 20 mg [Protonix 20MG Tablet] 20 mg PO DAILY 05/07/24 [History ] Tamsulosin HCl 0.4 mg [Flomax 0.4 MG] 0.4 mg PO DAILY 05/07/24 [History] Tolterodine Tartrate [Detrol LA] 4 mg PO DAILY 05/07/24 [History] Ubidecarenone [Co Q-10] 200 mg PO DAILY 05/07/24 [History] Hx Tetanus, Diphtheria Vaccination/Date Given: Yes Hx Influenza Vaccination/Date Given: Yes Hx Pneumococcal Vaccination/Date Given: No Travel Risk - International Travel Have you traveled outside of the country in past 3 weeks: No - Emerging Infectious Disease Are you exhibiting symptoms associated with any current EIDs: No Symptoms: Cough: New Onset - Review of Systems Constitutional: No Symptoms Eyes: No Symptoms Ears, Nose, & Throat: No Symptoms Respiratory: No Symptoms Cardiac: No Symptoms Abdominal/Gastrointestinal: No Symptoms Genitourinary Symptoms: No Symptoms Musculoskeletal: Other (The wound is swabbed for the culture and sensitivity) Skin: Cellulitis, Other (The wound is swabbed for the culture and sensitivity) Neurological: No Symptoms, Parasthesia Psychological: No Symptoms Hematologic/Lymphatic: No Symptoms All Other Systems: Reviewed and Negative - Past Medical History Pertinent Past Medical History: Yes Neurological History: No Pertinent History ENT History: No Pertinent History Cardiac History: High Cholesterol, Hypertension Respiratory History: No Pertinent History Endocrine Medical History: Diabetes Type II Musculoskeletal History: No Pertinent History GI Medical History: GERD History: No Pertinent History Psycho-Social History: No Pertinent History Male Reproductive Disorders: No Pertinent History Other Medical History: h/o afib in March 2023 with heart cath then NSR since that time. - Past Surgical History Past Surgical History: Yes Neuro Surgical History: No Pertinent History Cardiac: CABG Respiratory: No Pertinent History Gastrointestinal: Appendectomy Genitourinary: No Pertinent History Musculoskeletal: No Pertinent History Male Surgical History: No Pertinent History Other Surgical History: appi. hernia X 2. rt rotator cuff. quad bypass 04/2024 - Social History Smoking Status: Never smoker Exposure to second hand smoke: No Drug Use: none Patient Lives Alone: No - Social Determinants of Health Will the patient participate in the screening: Yes Do you worry about a steady place to live?: No Do you have any problems with any of the following?: No known problems In the past 12 months,have you had to go without utilities?: No Transportation Issues: No Has anyone in your support network made you feel unsafe?: No Have you or anyone in your house had to go without enough: No - Nursing Vital Signs Nursing Vital Signs: Initial Vital Signs Temperature 98.0 F 05/07/24 14:07 Pulse Rate 68 05/07/24 14:07 Respiratory Rate 18 05/07/24 14:07 Blood Pressure 157/78 05/07/24 14:07 O2 Sat by Pulse Oximetry 97 05/07/24 14:07 Pain Scale Pain Intensity 3 - Physical Exam General Appearance: no apparent distress Eyes, Ears, Nose, Throat Exam: normal ENT inspection Neck Exam: normal inspection, non-tender, supple Cardiovascular/Respiratory Exam: chest non-tender, normal breath sounds, regular rate/rhythm, heart sounds normal Gastrointestinal/Abdominal Exam: non-tender, soft Back Exam: normal inspection, normal range of motion Hips Exam: bilateral: non-tender, normal inspection, normal range of motion Foot Exam: left foot: bone tenderness, infection, pain, soft tissue tenderness, swelling, other (Swelling erythema and an open wound to the distal dorsal surface of left foot at the base of the second third fourth toes. The erythema and swelling is also extending to the second and third toes. Good capillary filling of the Toes.) SpO2: 97 - Course Nursing assessment & vital signs reviewed: Yes Ordered Tests: Active Orders 24 hr Category Date Time Status IV Insertion STAT Care 05/07/24 14:38 Active Wound Care STAT Care 05/07/24 14:38 Active FOOT (2 VIEWS) Stat Exams 05/07/24 14:40 Completed BLOOD CULTURE Stat Lab 05/07/24 15:05 Ordered CBC W DIFF Stat Lab 05/07/24 14:44 Completed CMP Stat Lab 05/07/24 14:44 Completed CULTURE,WOUND Stat Lab 05/07/24 14:40 Ordered Lactic Acid Stat Lab 05/07/24 14:49 Completed SED RATE [Erythrocyte Sedimentation Rate] Stat Lab 05/07/24 14:44 Completed Medication Summary Generic Name Dose Route Start Last Admin Trade Name Freq PRN Reason Stop Dose Admin Vancomycin HCl 1.5 gm in 300 mls @ 150 mls/hr 05/07/24 14:45 05/07/24 15:31 Vancomycin 1.5 Gram/300 Ml Bag IV 05/07/24 16:44 150 ml/hr Q24H GINNA 150 mls/hr Administration Discontinued Medications Generic Name Dose Route Start Last Admin Trade Name Freq PRN Reason Stop Dose Admin Piperacillin Sod/Tazobactam 100 mls @ 200 mls/hr 05/07/24 14:41 05/07/24 14:47 Sod 3.375 gm/ Sodium Chloride IV 05/07/24 15:10 200 mls/hr STAT ONE Administration Sodium Chloride Confirm 05/07/24 14:44 Sodium Chloride 100ml Mini-Bag Plus Administered 05/07/24 14:45 Dose 100 mls @ ud IV .STK-MED ONE Piperacillin Sod/Tazobactam Sod Confirm 05/07/24 14:44 Piperacillin/Tazobactam Sodium 3.375 Gm Vial Administered 05/07/24 14:45 Dose 3.375 gm IV .STK-MED ONE Lab/Rad Data: Laboratory Result Diagrams 05/07/24 14:44 05/07/24 14:44 Laboratory Results 05/07/24 05/07/24 05/07/24 Range/Units 14:49 14:44 14:44 WBC (4.23-9.07) x10^3/uL RBC (4.63-6.08) x10^6/uL Hgb (13.7-17.5) g/dL Hct (40.1-51.0) % MCV (79.0-92.2) fL MCH (25.7-32.2) pg MCHC (32.3-36.5) g/dL RDW (11.6-14.4) % Plt Count (163-337) x10^3/uL MPV (9.4-12.4) fL Gran % (34.0-67.9) % Immature Gran % (Auto) (0.001-0.429) % Nucleat RBC Rel Count (0.00-0.2) % Eos # (Auto) (0.04-0.54) x10^3/uL Immature Gran # (Auto) (0.001-0.031) x10^3u/L Absolute Lymphs (auto) (1.32-3.57) x10^3/uL Absolute Monos (auto) (0.30-0.82) x10^3/uL Absolute Nucleated RBC (0.00-0.012) x10^3u/L Lymphocytes % (21.8-53.1) % Monocytes % (5.3-12.2) % Eosinophils % (0.8-7.0) % Basophils % (0.2-1.2) % Absolute Granulocytes (1.78-5.38) x10^3/uL Basophils # (0.01-0.08) x10^3/uL ESR 56 H (0-15) mm/hr Sodium 139 (135-145) mmol/L Potassium 4.6 (3.5-5.1) mmol/L Chloride 107 (98-107) mmol/L Carbon Dioxide 22 (22-30) mmol/L Anion Gap 14.1 (5-15) MEQ/L BUN 18 (9-20) mg/dL Creatinine 1.67 H (0.66-1.25) mg/dL Estimated GFR 44.0 ML/MIN Glucose 209 H (74-106) mg/dL Lactic Acid 1.4 (0.4-2.0) Calcium 9.2 (8.4-10.2) mg/dL Total Bilirubin 0.30 (0.2-1.3) mg/dL AST 19 (17-59) U/L ALT 24 (0-50) U/L Alkaline Phosphatase 104 (38-126) U/L Serum Total Protein 6.9 (6.3-8.2) g/dL Albumin 3.8 (3.5-5.0) g/dL 05/07/24 Range/Units 14:44 WBC 10.5 H (4.23-9.07) x10^3/uL RBC 3.10 L (4.63-6.08) x10^6/uL Hgb 9.0 L (13.7-17.5) g/dL Hct 28.9 L (40.1-51.0) % MCV 93.2 H (79.0-92.2) fL MCH 29.0 (25.7-32.2) pg MCHC 31.1 L (32.3-36.5) g/dL RDW 14.6 H (11.6-14.4) % Plt Count 525 H (163-337) x10^3/uL MPV 10.6 (9.4-12.4) fL Gran % 76.0 H (34.0-67.9) % Immature Gran % (Auto) 1.5 H (0.001-0.429) % Nucleat RBC Rel Count 0.4 H (0.00-0.2) % Eos # (Auto) 0.26 (0.04-0.54) x10^3/uL Immature Gran # (Auto) 0.16 H (0.001-0.031) x10^3u/L Absolute Lymphs (auto) 1.32 (1.32-3.57) x10^3/uL Absolute Monos (auto) 0.75 (0.30-0.82) x10^3/uL Absolute Nucleated RBC 0.04 H (0.00-0.012) x10^3u/L Lymphocytes % 12.6 L (21.8-53.1) % Monocytes % 7.1 (5.3-12.2) % Eosinophils % 2.5 (0.8-7.0) % Basophils % 0.3 (0.2-1.2) % Absolute Granulocytes 7.98 H (1.78-5.38) x10^3/uL Basophils # 0.03 (0.01-0.08) x10^3/uL ESR (0-15) mm/hr Sodium (135-145) mmol/L Potassium (3.5-5.1) mmol/L Chloride (98-107) mmol/L Carbon Dioxide (22-30) mmol/L Anion Gap (5-15) MEQ/L BUN (9-20) mg/dL Creatinine (0.66-1.25) mg/dL Estimated GFR ML/MIN Glucose (74-106) mg/dL Lactic Acid (0.4-2.0) Calcium (8.4-10.2) mg/dL Total Bilirubin (0.2-1.3) mg/dL AST (17-59) U/L ALT (0-50) U/L Alkaline Phosphatase (38-126) U/L Serum Total Protein (6.3-8.2) g/dL Albumin (3.5-5.0) g/dL - Progress Progress Note: 05/07/24 14:47 68 years old male with past medical history of coronary artery disease status post CABG x 3 vessels 2 weeks ago at the [facility] in [place]. The patient has a history of type 2 diabetes currently on insulin. The patient is presenting to the emergency room with a chief complaint of pain swelling and open wound to the dorsal surface of his left foot that he has been having for at least a week. The patient states that he was discharged from the [facility] after his bypass 2 weeks ago he was wearing a RUSS hose which was tight to his left lower extremity where he had his saphenous vein stripped for the bypass. The patient remove the RUSS hose a week ago and since then he has been having a blister which broke up into an open wound. He denies any fever or chills. The wound is draining puslike material. The wound is swabbed for the culture and sensitivity Blood cultures, lactic acid, CBC, CMP, x-ray of the left foot, wound care and podiatry consultation. The patient will be given an empiric dose above Zosyn 3.375 g IV and vancomycin 1.5 would not be 05/07/24 15:00 The patient is getting evaluated by the a&p technician, Dr. Bustos. He is planning to do some wound debridement and dressing. The patient's workup, white count 10.5, hemoglobin 9, hematocrit 29, platelets 525. Sodium 139, potassium 4.6, chloride 107, bicarb 22, BUN 18, creatinine 1.67 and glucose 219. Lactic acid normal at 1.4. X-ray of the left foot apart from degenerative changes no acute findings. Dr. Bustos, believes that the patient can be discharged home on oral antibiotics and have him follow-up with him on an outpatient basis. 05/07/24 16:33 The patient had a wound care and dressing done by the a&p technician. Will be discharged home on Augmentin 875 twice a day for 10 days. He has an appointment to follow-up with the a&p technician, Dr. Bustos this coming 4 days from today. 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 Medical Desision Making - Discussion of managment Care discussed with:: specialist (Dr. Bustos. Podiatry) Will see patient: in ED - Departure Departure Disposition: Home Clinical Impression: Cellulitis and abscess of foot Condition: Stable Critical Care Time: No Referrals: SATNAM DESOUZA [facility] [Primary Care Provider] - Follow up/PCP as directed Prescriptions: Amox Tr/Potass Clav. 875 mg [Augmentin 875-125 Tablet] 875 mg PO BID #20 tablet
[2024-05-07 14:50] LABS: ALBUMIN 3.8 g/dL (3.5-5.0); ANION GAP 14.1 MEQ/L (5-15); BILIRUBIN,TOTAL 0.3 mg/dL (0.2-1.3); Calcium 9.2 mg/dL (8.4-10.2); Creatinine 1 1.67 mg/dL (0.66-1.25); Potassium 4.6 mmol/L (3.5-5.1); Total Protein 6.9 g/dL (6.3-8.2)
--- NOTE | 2024-05-07 15:00 | XRAY ---
Indication: Osteomyelitis. Comparison: None Single AP left foot demonstrates mild 1st MTP degenerative changes. No other bony, articular, or soft tissue abnormalities.
[2024-05-07] MEDS: VANCOMYCIN 1.5 GRAM/300 ML BAG 1.5 GM/300 ML PIGGYBACK IV SCH (15:31)
[2024-05-07 16:05] VITALS: PULSE 67
--- NOTE | 2024-05-07 16:32 | PCM.CONS ---
Podiatry HPI - Consult Date of Consultation Date: 05/07/24 Reason for Consult: Venous insuffiecny ulceration dorsal left foot s/p CABG Consulting Provider: SILVIA GAN DPM - [facility] History of Present Illness: 68 years old male with past medical history of coronary artery disease status post CABG x 3 vessels 2 weeks ago at the [facility] in [place]. The patient has a history of type 2 diabetes currently on insulin.The patient is presenting to the emergency room with a chief complaint of pain swelling and open wound to the dorsal surface of his left foot that he has been having for at least a week.The patient states that he was discharged from the [facility] after his bypass 2 weeks ago he was wearing a RUSS hose which was tight to his left lower extremity where he had his saphenous vein stripped for the bypass. The patient remove the RUSS hose a week ago and since then he has been having a blister which broke up into an open wound. He denies any fever or chills. The wound is draining purulent material. Medications & Allergies Home Medications: Home Medication List Acetaminophen 325 mg [Tylenol 325 mg] 325 mg PO DAILY PRN PRN 05/07/24 [History Confirmed 05/07/24] Apixaban [Eliquis 2.5 mg Tablet] 2.5 mg PO BID 05/07/24 [History Confirmed 05/07/24] Aspirin [Aspirin EC] 81 mg PO DAILY 05/07/24 [History Confirmed 05/07/24] Atorvastatin Calcium [Lipitor] 80 mg PO DAILY 05/07/24 [History Confirmed 05/07/24] Benzonatate 100 mg PO DAILY PRN PRN 05/07/24 [History Confirmed 05/07/24] Carvedilol 12.5 mg [Coreg 12.5 mg] 12.5 mg PO BID 05/07/24 [History Confirmed 05/07/24] Docusate Calcium [Stool Softener] 240 mg PO BID 05/07/24 [History Confirmed 05/07/24] Empagliflozin [Jardiance] 10 mg PO DAILY 05/07/24 [History Confirmed 05/07/24] Ezetimibe 10 mg [Zetia 10 MG] 10 mg PO DAILY 05/07/24 [History Confirmed 05/07/24] Fenofibrate 45 mg PO DAILY 05/07/24 [History Confirmed 05/07/24] Finerenone [Kerendia] 10 mg PO DAILY 05/07/24 [History Confirmed 05/07/24] Furosemide 20 mg [Lasix 20 mg] 20 mg PO DAILY PRN PRN 05/07/24 [History Confirmed 05/07/24] Lidocaine [Lidocaine Pain Relief] 1 each TP DAILY PRN PRN 05/07/24 [History Conf irmed 05/07/24] Methocarbamol [Robaxin] 500 mg PO DAILY PRN PRN 05/07/24 [History Confirmed 05/07/24] Naloxone HCl [Narcan] 4 mg NS DAILY 05/07/24 [History Confirmed 05/07/24] Nitroglycerin [Nitrostat] 0.3 mg SL DAILY PRN PRN 05/07/24 [History Confirmed 05/07/24] Pantoprazole 20 mg [Protonix 20MG Tablet] 20 mg PO DAILY 05/07/24 [History Confirmed 05/07/24] Tamsulosin HCl 0.4 mg [Flomax 0.4 MG] 0.4 mg PO DAILY 05/07/24 [History Confirmed 05/07/24] Tolterodine Tartrate [Detrol LA] 4 mg PO DAILY 05/07/24 [History Confirmed 05/07/24] Ubidecarenone [Co Q-10] 200 mg PO DAILY 05/07/24 [History Confirmed 05/07/24] Allergies/Adverse Reactions: Allergies Allergy/AdvReac Type Severity Reaction Status Date / Time lisinopril AdvReac Severe Cough Verified 05/07/24 14:34 losartan AdvReac Severe Cough Verified 05/07/24 14:34 valsartan AdvReac Severe Cough Verified 05/07/24 14:34 - Past Medical History Past Medical History: Yes Neurological History: No Pertinent History ENT History: No Pertinent History Cardiac History: High Cholesterol, Hypertension Respiratory History: No Pertinent History Endocrine Medical History: Diabetes Type II Musculoskelatal History: No Pertinent History GI Medical History: GERD History: No Pertinent History Pyscho-Social History: No Pertinent History Male Reproductive Disorders: No Pertinent History Comment: h/o afib in March 2023 with heart cath then NSR since that time. - Past Surgical History Past Surgical History: Yes Neuro Surgical History: No Pertinent History Cardiac History: CABG Respiratory Surgery: No Pertinent History GI Surgical History: Appendectomy Genitourinary Surgical Hx: No Pertinent History Musculskeletal Surgical Hx: No Pertinent History Male Surgical History: No Pertinent History Other Surgical History: appi. hernia X 2. rt rotator cuff. quad bypass 04/2024 - Social History Smoking Status: Never smoker Exposure to second hand smoke: No Alcohol: None Drug Use: none - Social Determinants of Health Will the patient participate in the screening: Yes Do you worry about a steady place to live?: No Do you have any problems with any of the following?: No known problems In the past 12 months,have you had to go without utilities?: No Have you or anyone in your house had to go without enough: No Transportation Issues: No Has anyone in your support network made you feel unsafe?: No Physical Exam - Narrative Narrative Physical Exam: Podiatry Physical Exam Results - Labs Lab/Micro Results: Lab Results-Last 24 Hours 05/07/24 05/07/24 05/07/24 Range/Units 14:44 14:44 14:44 WBC 10.5 H (4.23-9.07) x10^3/uL RBC 3.10 L (4.63-6.08) x10^6/uL Hgb 9.0 L (13.7-17.5) g/dL Hct 28.9 L (40.1-51.0) % MCV 93.2 H (79.0-92.2) fL MCH 29.0 (25.7-32.2) pg MCHC 31.1 L (32.3-36.5) g/dL RDW 14.6 H (11.6-14.4) % Plt Count 525 H (163-337) x10^3/uL MPV 10.6 (9.4-12.4) fL Gran % 76.0 H (34.0-67.9) % Immature Gran % (Auto) 1.5 H (0.001-0.429) % Nucleat RBC Rel Count 0.4 H (0.00-0.2) % Eos # (Auto) 0.26 (0.04-0.54) x10^3/uL Immature Gran # (Auto) 0.16 H (0.001-0.031) x10^3u/L Absolute Lymphs (auto) 1.32 (1.32-3.57) x10^3/uL Absolute Monos (auto) 0.75 (0.30-0.82) x10^3/uL Absolute Nucleated RBC 0.04 H (0.00-0.012) x10^3u/L Lymphocytes % 12.6 L (21.8-53.1) % Monocytes % 7.1 (5.3-12.2) % Eosinophils % 2.5 (0.8-7.0) % Basophils % 0.3 (0.2-1.2) % Absolute Granulocytes 7.98 H (1.78-5.38) x10^3/uL Basophils # 0.03 (0.01-0.08) x10^3/uL ESR 56 H (0-15) mm/hr Sodium 139 (135-145) mmol/L Potassium 4.6 (3.5-5.1) mmol/L Chloride 107 (98-107) mmol/L Carbon Dioxide 22 (22-30) mmol/L Anion Gap 14.1 (5-15) MEQ/L BUN 18 (9-20) mg/dL Creatinine 1.67 H (0.66-1.25) mg/dL Estimated GFR 44.0 ML/MIN Glucose 209 H (74-106) mg/dL Lactic Acid (0.4-2.0) Calcium 9.2 (8.4-10.2) mg/dL Total Bilirubin 0.30 (0.2-1.3) mg/dL AST 19 (17-59) U/L ALT 24 (0-50) U/L Alkaline Phosphatase 104 (38-126) U/L Serum Total Protein 6.9 (6.3-8.2) g/dL Albumin 3.8 (3.5-5.0) g/dL 05/07/24 Range/Units 14:49 WBC (4.23-9.07) x10^3/uL RBC (4.63-6.08) x10^6/uL Hgb (13.7-17.5) g/dL Hct (40.1-51.0) % MCV (79.0-92.2) fL MCH (25.7-32.2) pg MCHC (32.3-36.5) g/dL RDW (11.6-14.4) % Plt Count (163-337) x10^3/uL MPV (9.4-12.4) fL Gran % (34.0-67.9) % Immature Gran % (Auto) (0.001-0.429) % Nucleat RBC Rel Count (0.00-0.2) % Eos # (Auto) (0.04-0.54) x10^3/uL Immature Gran # (Auto) (0.001-0.031) x10^3u/L Absolute Lymphs (auto) (1.32-3.57) x10^3/uL Absolute Monos (auto) (0.30-0.82) x10^3/uL Absolute Nucleated RBC (0.00-0.012) x10^3u/L Lymphocytes % (21.8-53.1) % Monocytes % (5.3-12.2) % Eosinophils % (0.8-7.0) % Basophils % (0.2-1.2) % Absolute Granulocytes (1.78-5.38) x10^3/uL Basophils # (0.01-0.08) x10^3/uL ESR (0-15) mm/hr Sodium (135-145) mmol/L Potassium (3.5-5.1) mmol/L Chloride (98-107) mmol/L Carbon Dioxide (22-30) mmol/L Anion Gap (5-15) MEQ/L BUN (9-20) mg/dL Creatinine (0.66-1.25) mg/dL Estimated GFR ML/MIN Glucose (74-106) mg/dL Lactic Acid 1.4 (0.4-2.0) Calcium (8.4-10.2) mg/dL Total Bilirubin (0.2-1.3) mg/dL AST (17-59) U/L ALT (0-50) U/L Alkaline Phosphatase (38-126) U/L Serum Total Protein (6.3-8.2) g/dL Albumin (3.5-5.0) g/dL Microbiology 05/07/24 14:38 Blood Culture Gram Stain - Final Blood Not Reportable - Radiology Impressions Radiology Exams & Impressions: Radiology Procedures Category Date Time Status FOOT (2 VIEWS) Stat Exams 05/07/24 14:40 Completed Assessment/Plan (1) S/P CABG (coronary artery bypass graft) Current Visit: Yes Status: Acute Assessment & Plan: seemingly successful scheduled follow up next week 05/11/2024 Code(s): Z95.1 - PRESENCE OF AORTOCORONARY BYPASS GRAFT (2) Venous insufficiency of left leg Current Visit: Yes Status: Acute Code(s): I87.2 - VENOUS INSUFFICIENCY (CHRONIC) (PERIPHERAL) (3) Localized edema Current Visit: Yes Status: Acute Code(s): R60.0 - LOCALIZED EDEMA (4) Ulcer of extremity due to chronic venous insufficiency Current Visit: Yes Status: Acute Assessment & Plan: bedside debridement preformed revealing partial thickness ulceration with measurements noted to be 2.7 x 4.5 x 0.1 post debridement cultures obtained at bedside Iodine paint, medihoney and unna boot applied to the left lower extremity for localized edema. discussion with ED physician will proceed with outpatient augmentin as primarily prophylaxis Vancomycin and zosyn at bedside on presentation Will follow up outpatient . Thank you for the consult Code(s): L98.499 - NON-PRESSURE CHRONIC ULCER OF SKIN OF SITES W UNSP SEVERITY; I87.2 - VENOUS INSUFFICIENCY (CHRONIC) (PERIPHERAL) (5) Diabetes mellitus type 2 with complications, uncontrolled Current Visit: No Status: Acute Assessment & Plan: 8.1 A1c Code(s): E11.8 - TYPE 2 DIABETES MELLITUS WITH UNSPECIFIED COMPLICATIONS; E11.65 - TYPE 2 DIABETES MELLITUS WITH HYPERGLYCEMIA
[2024-05-07 17:39] VITALS: BP 152/79; O2SAT 94
== END 2024-05-07 17:50 | disposition home or self-care (01) ==
LOC: ED 13:59
DX: L02.612 Cutaneous abscess of left foot (principal); L03.116 Cellulitis of left lower limb; L97.529 Non-pressure chronic ulcer of other part of left foot with unspecified severity; I87.2 Venous insufficiency (chronic) (peripheral); R60.0 Localized edema; E11.65 Type 2 diabetes mellitus with hyperglycemia; Z95.1 Presence of aortocoronary bypass graft; E78.5 Hyperlipidemia, unspecified; I10 Essential (primary) hypertension; Z79.01 Long term (current) use of anticoagulants; Z79.84 Long term (current) use of oral hypoglycemic drugs; Z79.4 Long term (current) use of insulin; Z79.899 Other long term (current) drug therapy
CPT/HCPCS: 11042; 29580; 36000; 36415; 73620; 80053; 83605; 85025; 85652; 87040; 87070; 96365; 96367; 99204; 99284; J3370

== ENCOUNTER 2024-05-23 15:26 | Emergency (ER) | payer OTHER ==
[2024-05-23 15:59] VITALS: BP 146/77; PULSE 85; RESP 18; TEMP 97.7; O2SAT 97
--- NOTE | 2024-05-23 16:28 | ERPHSYRPT ---
- History of Present Illness Time Seen by Provider: 05/23/24 16:03 Source: patient Exam Limitations: no limitations Patient Subjective Stated Complaint: C/O Swelling and purple discoloration to left foot. Indicates he noticed the color change today after being up all night. Triage Nursing Assessment: Patient ambulated back to ER. He is alert and oriented. LLE is swollen, tight. Open wound to top of left foot measures 2cm X 3cm. Wound is currently dry. Pedal pulse present. NO discoloration noted upon arrival to ER. Physician History: 69 years old male with history of CABG almost a month ago from left leg graft harvesting presented in the ER for evaluation of left foot wound. Patient reports he has a wound for for few weeks and is improving. Earlier he was at his appointment at [facility] in [place], was on his feet all day long and noticed some swelling and discoloration of left foot which scared him. He called his [place] triage nurse who recommended evaluation. Patient drove back home and decided to be seen in this ER. Patient's swelling and discoloration is improved. He denies any pain. No fever or chills reported. Reports no discharge from the wound. Has a small wound on the left upper calf area which is improving for him. Superficial wound left distal dorsal foot with good granulation tissue. Distal neurovascular intact. Pulses and cap refill normal. No swelling/tenderness/ increased temperature. I did not appreciate any signs of cellulitis, ischemia, wound infection. It is healing well and do not think patient needs any workup. He is thoroughly counseled to keep the leg elevated as it is natural to have some swelling in the left as compared to right because of graft harvesting. Outpatient follow-up recommended. Allergies/Adverse Reactions: lisinopril Adverse Reaction (Severe, Verified 05/23/24 15:44) Cough losartan Adverse Reaction (Severe, Verified 05/23/24 15:44) Cough valsartan Adverse Reaction (Severe, Verified 05/23/24 15:44) Cough Home Medications: Acetaminophen 325 mg [Tylenol 325 mg] 325 mg PO DAILY PRN PRN 05/07/24 [History] Apixaban [Eliquis 2.5 mg Tablet] 2.5 mg PO BID 05/07/24 [History] Aspirin [Aspirin EC] 81 mg PO DAILY 05/07/24 [History] Atorvastatin Calcium [Lipitor] 80 mg PO DAILY 05/07/24 [History] Benzonatate 100 mg PO DAILY PRN PRN 05/07/24 [History] Carvedilol 12.5 mg [Coreg 12.5 mg] 12.5 mg PO BID 05/07/24 [History] Docusate Calcium [Stool Softener] 240 mg PO BID 05/07/24 [History] Empagliflozin [Jardiance] 10 mg PO DAILY 05/07/24 [History] Ezetimibe 10 mg [Zetia 10 MG] 10 mg PO DAILY 05/07/24 [History] Fenofibrate 45 mg PO DAILY 05/07/24 [History] Finerenone [Kerendia] 10 mg PO DAILY 05/07/24 [History] Furosemide 20 mg [Lasix 20 mg] 20 mg PO DAILY PRN PRN 05/07/24 [History] Lidocaine [Lidocaine Pain Relief] 1 each TP DAILY PRN PRN 05/07/24 [History] Methocarbamol [Robaxin] 500 mg PO DAILY PRN PRN 05/07/24 [History] Naloxone HCl [Narcan] 4 mg NS DAILY 05/07/24 [History] Nitroglycerin [Nitrostat] 0.3 mg SL DAILY PRN PRN 05/07/24 [History] Pantoprazole 20 mg [Protonix 20MG Tablet] 20 mg PO DAILY 05/07/24 [History] Tamsulosin HCl 0.4 mg [Flomax 0.4 MG] 0.4 mg PO DAILY 05/07/24 [History] Tolterodine Tartrate [Detrol LA] 4 mg PO DAILY 05/07/24 [History] Ubidecarenone [Co Q-10] 200 mg PO DAILY 05/07/24 [History] Hx Tetanus, Diphtheria Vaccination/Date Given: Yes Hx Influenza Vaccination/Date Given: Yes Hx Pneumococcal Vaccination/Date Given: No Immunizations Up to Date: Yes Travel Risk - International Travel Have you traveled outside of the country in past 3 weeks: No - Emerging Infectious Disease Are you exhibiting symptoms associated with any current EIDs: No Symptoms: Cough: New Onset - Review of Systems Constitutional: No Symptoms Ears, Nose, & Throat: No Symptoms Respiratory: No Symptoms Cardiac: No Symptoms Skin: Rash, Skin Lesions Neurological: No Symptoms - Past Medical History Pertinent Past Medical History: Yes Neurological History: No Pertinent History ENT History: No Pertinent History Cardiac History: High Cholesterol, Hypertension Respiratory History: No Pertinent History Endocrine Medical History: Diabetes Type II Musculoskeletal History: No Pertinent History GI Medical History: GERD History: No Pertinent History Psycho-Social History: No Pertinent History Male Reproductive Disorders: No Pertinent History Other Medical History: h/o afib in March 2023 with heart cath then NSR since that time. - Past Surgical History Past Surgical History: Yes Neuro Surgical History: No Pertinent History Cardiac: CABG Respiratory: No Pertinent History Gastrointestinal: Appendectomy, Hernia Repair Genitourinary: No Pertinent History Musculoskeletal: No Pertinent History Male Surgical History: No Pertinent History Other Surgical History: rt rotator cuff, quad bypass 04/2024 - Social History Smoking Status: Never smoker Exposure to second hand smoke: No Drug Use: none Patient Lives Alone: No - Social Determinants of Health Will the patient participate in the screening: Yes Do you worry about a steady place to live?: No Do you have any problems with any of the following?: No known problems In the past 12 months,have you had to go without utilities?: No Transportation Issues: No Has anyone in your support network made you feel unsafe?: No Have you or anyone in your house had to go without enough: No - Nursing Vital Signs Nursing Vital Signs: Initial Vital Signs Temperature 97.7 F 05/23/24 15:45 Pulse Rate 85 05/23/24 15:45 Respiratory Rate 18 05/23/24 15:45 Blood Pressure 146/77 05/23/24 15:45 O2 Sat by Pulse Oximetry 97 05/23/24 15:45 Pain Scale Pain Intensity 0 - Physical Exam General Appearance: no apparent distress Neck Exam: normal inspection, full range of motion Respiratory Exam: normal breath sounds, lungs clear Cardiovascular Exam: regular rate/rhythm, normal heart sounds Extremity Exam: normal range of motion, other (Superficial wound left distal dorsal foot 3 x 2 cm with good granulation tissue.) Neurologic Exam: alert, oriented x 3, cooperative Skin Exam: normal color SpO2 Interpretation: normal SpO2: 97 O2 Delivery: Room Air - Progress Progress: unchanged Progress Note: 05/23/24 16:27 69 years old male with history of CABG almost a month ago from left leg graft harvesting presented in the ER for evaluation of left foot wound. Patient reports he has a wound for for few weeks and is improving. Earlier he was at his appointment at [facility] in [place], was on his feet all day long and noticed some swelling and discoloration of left foot which scared him. He called his [place] triage nurse who recommended evaluation. Patient drove back home and decided to be seen in this ER. Patient's swelling and discoloration is improved. He denies any pain. No fever or chills reported. Reports no discharge from the wound. Has a small wound on the left upper calf area which is improving for him. Superficial wound left distal dorsal foot with good granulation tissue. Distal neurovascular intact. Pulses and cap refill normal. No swelling/tenderness/increased temperature. I did not appreciate any signs of cellulitis, ischemia, wound infection. It is healing well and do not think patient needs any workup. He is thoroughly counseled to keep the leg elevated as it is natural to have some swelling in the left as compared to right because of graft harvesting. Outpatient follow-up recommended. Counseled pt/family regarding: diagnosis, need for follow-up Medical Desision Making - Diagnostic Testing Diagnostic test were ordered, analyzed, and reviewed by me: No - Departure Departure Disposition: Home Clinical Impression: Encounter for wound re-check Condition: Stable Critical Care Time: No Referrals: SATNAM DESOUZA FNP [Primary Care Provider] - Follow up with PCP 1 day Instructions: Wound Care (DC) Additional Instructions: Follow-up with your primary care and podiatry for reevaluation. Return to ER for increasing swelling redness discharge, discoloration, pain or if develop fever chills etc. Keep it clean and dry.
== END 2024-05-23 16:39 | disposition home or self-care (01) ==
LOC: ED 15:26
DX: Z48.00 Encounter for change or removal of nonsurgical wound dressing (principal); E78.5 Hyperlipidemia, unspecified; I10 Essential (primary) hypertension; E11.9 Type 2 diabetes mellitus without complications; Z79.01 Long term (current) use of anticoagulants; Z79.84 Long term (current) use of oral hypoglycemic drugs; Z79.899 Other long term (current) drug therapy
CPT/HCPCS: 99281

== ENCOUNTER 2024-10-16 16:18 | Emergency (ER) | payer OTHER ==
[2024-10-16 16:35] VITALS: TEMP 97.5; O2SAT 95
--- NOTE | 2024-10-16 16:52 | ERPHSYRPT ---
- History of Present Illness Time Seen by Provider: 10/16/24 16:35 Source: patient Exam Limitations: no limitations Patient Subjective Stated Complaint: pt states that he tripped over a lawn chair in the garage. pt states he fell and hit his head Triage Nursing Assessment: pt ambulated into the er; pt is axo x4; c/o head injury; pt states 7/10 pain to rt side of head; hematoma present to rt side of head; bruising and swelling present to rt side of head; pupils 3 mm and PERRL; pt denies LOC; strong marlin compliance spec and pushes; skin PDW; no respiratory distress present; vitals wnl Physician History: 69-year-old male presents to our emergency department for evaluation status post fall and head injury. Patient was in his garage. Patient tripped over a lawn chair fell forward and hit his head on concrete. No loss of consciousness. Patient has pain to the right side of his head. Patient declined pain medication. No nausea no vomiting. No headache. No neck pain. Cervical spine cleared clinically. Patient denies vomiting episodes. Patient's pain described as an ache that is localized. No radiation. Pain worse with palpation. Pain improved with rest. Patient otherwise feels well. Patient sisters at the bedside. They voiced no other complaints or concerns at this time. Portions of this note were created with voice recognition technology. There may be grammatical, spelling, punctuation or sound alike errors Timing/Duration: today Severity: moderate Modifying Factors: Improves With: nothing Associated Symptoms: denies symptoms Allergies/Adverse Reactions: lisinopril Adverse Reaction (Severe, Verified 10/16/24 16:24) Cough losartan Adverse Reaction (Severe, Verified 10/16/24 16:24) Cough valsartan Adverse Reaction (Severe, Verified 10/16/24 16:24) Cough Home Medications: Acetaminophen 325 mg [Tylenol 325 mg] 325 mg PO DAILY PRN PRN 05/07/24 [History] Aspirin [Aspirin EC] 81 mg PO DAILY 05/07/24 [History] Atorvastatin Calcium [Lipitor] 80 mg PO DAILY 05/07/24 [History] Benzonatate 100 mg PO DAILY PRN PRN 05/07/24 [History] Carvedilol 12.5 mg [Coreg 12.5 mg] 3.25 mg PO BID 05/07/24 [History] Docusate Calcium [Stool Softener] 240 mg PO BID 05/07/24 [History] Empagliflozin [Jardiance] 10 mg PO DAILY 05/07/24 [History] Ezetimibe 10 mg [Zetia 10 MG] 10 mg PO DAILY 05/07/24 [History] Fenofibrate 45 mg PO DAILY 05/07/24 [History] Finerenone [Kerendia] 10 mg PO DAILY 05/07/24 [History] Furosemide 20 mg [Lasix 20 mg] 20 mg PO DAILY PRN PRN 05/07/24 [History] Lidocaine [Lidocaine Pain Relief] 1 each TP DAILY PRN PRN 05/07/24 [History] Methocarbamol [Robaxin] 500 mg PO DAILY PRN PRN 05/07/24 [History] Naloxone HCl [Narcan] 4 mg NS DAILY 05/07/24 [History] Nitroglycerin [Nitrostat] 0.3 mg SL DAILY PRN PRN 05/07/24 [History] Pantoprazole 20 mg [Protonix 20MG Tablet] 20 mg PO BID 05/07/24 [History] Tamsulosin HCl 0.4 mg [Flomax 0.4 MG] 0.4 mg PO DAILY 05/07/24 [History] Tolterodine Tartrate [Detrol LA] 4 mg PO DAILY 05/07/24 [History] Ubidecarenone [Co Q-10] 200 mg PO DAILY 05/07/24 [History] Insulin Glargine [Lantus Insulin] 56 unit SQ DAILY 10/16/24 [History] Insulin Lispro [Humalog] 1 unit SQ ACHS 10/16/24 [History] Semaglutide [Ozempic] 0.5 mg SQ WEEKLY 10/16/24 [History] Hx Tetanus, Diphtheria Vaccination/Date Given: Yes Hx Influenza Vaccination/Date Given: Yes Hx Pneumococcal Vaccination/Date Given: No Travel Risk - International Travel Have you traveled outside of the country in past 3 weeks: No - Emerging Infectious Disease Are you exhibiting symptoms associated with any current EIDs: No Symptoms: Cough: New Onset - Review of Systems Constitutional: No Symptoms, No Fever, No Chills Eyes: No Symptoms Ears, Nose, & Throat: No Symptoms Respiratory: No Symptoms, No Cough, No Dyspnea Cardiac: No Symptoms, No Chest Pain, No Edema, No Syncope Abdominal/Gastrointestinal: No Symptoms, No Abdominal Pain, No Nausea, No Vomiting, No Diarrhea Genitourinary Symptoms: No Symptoms, No Dysuria Musculoskeletal: No Symptoms, No Back Pain, No Neck Pain Skin: No Symptoms, No Rash Neurological: No Symptoms, No Dizziness, No Focal Weakness, No Sensory Changes Psychological: No Symptoms Endocrine: No Symptoms Hematologic/Lymphatic: No Symptoms Immunological/Allergic: No Symptoms All Other Systems: Reviewed and Negative - Past Medical History Pertinent Past Medical History: Yes Neurological History: No Pertinent History ENT History: No Pertinent History Cardiac History: High Cholesterol, Hypertension Respiratory History: No Pertinent History Endocrine Medical History: Diabetes Type II Musculoskeletal History: No Pertinent History GI Medical History: GERD History: No Pertinent History Psycho-Social History: No Pertinent History Male Reproductive Disorders: No Pertinent History Other Medical History: h/o afib in March 2023 with heart cath then NSR since that time. - Past Surgical History Past Surgical History: Yes Neuro Surgical History: No Pertinent History Cardiac: CABG Respiratory: No Pertinent History Gastrointestinal: Appendectomy, Hernia Repair Genitourinary: No Pertinent History Musculoskeletal: No Pertinent History Male Surgical History: No Pertinent History Other Surgical History: rt rotator cuff, quad bypass 04/2024 - Social History Smoking Status: Never smoker Exposure to second hand smoke: No Drug Use: none - Social Determinants of Health Will the patient participate in the screening: Yes Do you worry about a steady place to live?: No Do you have any problems with any of the following?: No known problems In the past 12 months,have you had to go without utilities?: No Transportation Issues: No Has anyone in your support network made you feel unsafe?: No Have you or anyone in your house had to go w/o enough food: No - Nursing Vital Signs Nursing Vital Signs: Initial Vital Signs Temperature 97.5 F 10/16/24 16:25 Pulse Rate 87 10/16/24 16:25 Respiratory Rate 18 10/16/24 16:25 Blood Pressure 120/74 10/16/24 16:25 O2 Sat by Pulse Oximetry 97 10/16/24 16:25 Pain Scale Pain Intensity 7 - Physical Exam General Appearance: no apparent distress, alert, other (Superficial abrasion and contusion to right side of his head at the temporal area) Eye Exam: PERRL/EOMI, eyes nml inspection Ears, Nose, Throat Exam: normal ENT inspection, TMs normal, pharynx normal, moist mucous membranes Neck Exam: normal inspection, non-tender, supple, full range of motion Respiratory Exam: normal breath sounds, lungs clear, airway intact, No respiratory distress Cardiovascular Exam: regular rate/rhythm, normal heart sounds, normal peripheral pulses Gastrointestinal/Abdomen Exam: soft, normal bowel sounds, No tenderness, No mass Back Exam: normal inspection, normal range of motion, No CVA tenderness, No vertebral tenderness Extremity Exam: normal inspection, normal range of motion, pelvis stable Neurologic Exam: alert, oriented x 3, cooperative, normal mood/affect, nml cerebellar function, nml station & gait, sensation nml, No motor deficits Skin Exam: normal color, warm, dry, No rash Lymphatic Exam: No adenopathy SpO2 Interpretation: normal SpO2: 95 O2 Delivery: Room Air - Course Nursing assessment & vital signs reviewed: Yes - CT Exams Head CT Interpretation: Tele-radiologist Report (No acute intracranial pathology) Ordered Tests: Active Orders 24 hr Category Date Time Status HEAD WITHOUT CONTRAST [CT] Stat Exams 10/16/24 16:43 Completed - Progress Progress: improved Progress Note: 69-year-old male presents to our ED status post mechanical fall in his garage. Patient fell onto a concrete floor. Physical exam reveals a contusion with a slight superficial abrasion superimposed at its surface. No open or draining lesions. No lacerations. Neurologic exam within normal limits. No focal or lateralizing symptomology. No neck pain. Cervical spine cleared clinically. CT head negative for acute intracranial pathology. Patient declined pain medication. Patient reassessed. He is well. Patient states he is ready for discharge. No indication for further workup at this time. Will discharge home. Patient agrees to follow-up with primary care doctor within 48 hours for reevaluation. Portions of this note were created with voice recognition technology. There may be grammatical, spelling, punctuation or sound alike errors Complexity of problem addressed is moderate acute complicated. No critical care time. Complexity of data reviewed and analyzed is moderate. Test ordered test reviewed results analyzed and correlated clinically with history and physical exam. Risk of complication and or risk of morbidity/mortality of patient management is low. Vital stable. Time spent to discharge patient is approximately 10 minutes. Plan of care established for shared decision making. No social determinants of health present to impede follow-up. Portions of this note were created with voice recognition technology. There may be grammatical, spelling, punctuation or sound alike errors 10/16/24 17:20 Counseled pt/family regarding: diagnosis, need for follow-up, rad results - Departure Departure Disposition: Home Clinical Impression: Fall, Head contusion Condition: Stable Critical Care Time: No Referrals: SATNAM DESOUZA FNP [Primary Care Provider] - Follow up/PCP as directed Instructions: Head injury in adults, Preventing falls - ED discharge instructions Additional Instructions: Discharge/Care Plan JAMES GIORDANO was seen on 10/16/24 in the Emergency Room. The patient was counseled regarding Diagnosis,Lab results, Imaging studies, need for follow up and when to return to the Emergency Room. Prescriptions given: Discharge Note I have spoken with the patient and/or caregivers. I have explained the patient's condition, diagnosis and treatment plan based on the information available to me at this time. I have answered the patient's and/or caregiver's questions and addressed any concerns. The patient and/or caregivers have as good understanding of the patient's diagnosis, condition and treatment plan as can be expected at this point. The vital signs have been stable. The patient's condition is stable and appropriate for discharge from the emergency department. The patient will pursue further outpatient evaluation with the primary care physician or other designated or consulting physician as outlined in the discharge instructions. The patient and/or caregivers are agreeable to this plan of care and follow-up instructions have been explained in detail. The patient and/or caregivers have received these instruction. The patient/and or caregivers are aware that any significant change in condition or worsening of symptoms should prompt an immediate return to this or the closest emergency department or call 911.
--- NOTE | 2024-10-16 17:05 | XRAY ---
Indication: Status post fall/trauma. Multiple contiguous axial images obtained through the head without contrast. Comparison: January 14, 2024 Again age-appropriate global atrophy. No acute intracranial hemorrhage, abnormal extra-axial fluid collection, or mass effect. Fourth ventricle is midline without hydrocephalus. Reeves-white matter differentiation preserved. Bony calvarium intact. Visualized paranasal sinuses and mastoid air cells are clear. Impression: Continued negative CT head without contrast exam.
[2024-10-16 17:21] VITALS: BP 130/80; PULSE 82; RESP 16
== END 2024-10-16 17:24 | disposition home or self-care (01) ==
LOC: ED 16:18
DX: S00.93XA Contusion of unspecified part of head, initial encounter (principal); W01.0XXA Fall on same level from slipping, tripping and stumbling without subsequent striking against object, initial encounter; Y92.008 Other place in unspecified non-institutional (private) residence as the place of occurrence of the external cause; E78.5 Hyperlipidemia, unspecified; I10 Essential (primary) hypertension; E11.9 Type 2 diabetes mellitus without complications; Z79.84 Long term (current) use of oral hypoglycemic drugs; Z79.4 Long term (current) use of insulin; Z79.85 Long-term (current) use of injectable non-insulin antidiabetic drugs; Z79.899 Other long term (current) drug therapy
CPT/HCPCS: 70450; 99283; 99284